=== PATIENT | female | born 1970 | race Caucasian/White ===

== ENCOUNTER → 2017-10-28 15:38 | Outpatient (REF) | payer MEDICAID, SELFPAY ==
[2017-10-28 18:53] LABS: Basophils % 0.5 % (0.1-2.0); Eosinophils # 0.1 K/mm3 (0.0-0.4); Hematocrit 45.5 % (37.0-47.0); Lymphocytes # 1.8 K/mm3 (0.7-4.5); Lymphocytes % 26.2 K/mm3 (10-50); Mean Corpuscular HGB Conc 32.9 g/dL (31.8-35.4); Mean Corpuscular Hemoglobin 28.4 pg (27.0-31.2); Mean Corpuscular Volume 86.6 fl (81-99); Mean Platelet Volume 8.5 fl (7.4-10.4); Monocytes # 0.4 K/mm3 (0.1-1.0); Neutrophils # 4.6 K/mm3 (1.8-7.8); Neutrophils % 66.3 % (37.0-80.0); Platelet Count 291 K/mm3 (142-424); Red Blood Count 5.26 M/mm3 (4.20-5.40); Red Cell Distribution Width 13.5 % (11.5-17.5)
[2017-10-28 20:23] LABS: Alanine Aminotransferase 29 U/L (12-78); Albumin Level 4.4 gm/dL (3.4-5.0); Alkaline Phosphatase 118 U/L (46-116); Anion Gap 13.2 mEq/L (5-15); Aspartate Amino Transferase 17 U/L (15-37); Bilirubin,Total 0.5 mg/dL (0.2-1.0); Blood Urea Nitrogen 21 mg/dL (7-18); Calcium 10.1 mg/dL (8.5-10.1); Carbon Dioxide 28 mmol/L (21.0-32.0); Chloride 103 mmol/L (98-107); Chol/HDL Ratio 6.9 (1-3.5); Cholesterol 296 mg/dL (140-200); Creatinine,Serum 0.88 mg/dL (0.55-1.02); Estimated Glomerular Filt Rate 69 ml/min (>60); GFR (African American) 83 ML/MIN (>60); Globulin 4.3 gm/dl (1.3-3.2); Glucose 110 mg/dL (74-106); HDL Cholesterol 43 mg/dL (29-89); LDL Cholesterol 217 mg/dL (0-130); Potassium 4.2 mmoL/L (3.5-5.1); Sodium 140 mmol/L (136-145); T4 (Thyroxine) 9.4 ug/dl (4.7-13.3); Thyroid Stimulating Hormone 3.88 uIU/ml (0.358-3.740); Total Protein,Serum 8.7 gm/dL (6.4-8.2); Triglycerides 181 mg/dL (30-200); VLDL Cholesterol 36 mg/dL (0-40)
[2017-10-30 10:19] LABS: Vitamin B12 313 pg/mL (232-1245); Vitamin D 25 Hydroxy 9.9 ng/mL (30.0-100.0)
== END ==
LOC: LAB 15:38
PROVIDERS: Visit Provider Nurse Practitioner Family
DX: R53.83 Other fatigue (principal); R09.89 Other specified symptoms and signs involving the circulatory and respiratory systems; E55.9 Vitamin D deficiency, unspecified
CPT/HCPCS: 80053; 80061; 82607; 82652; 84436; 84443; 85025

== ENCOUNTER → 2017-11-05 08:03 | Outpatient (CLI) | payer MEDICAID, SELFPAY ==
--- NOTE | 2017-11-05 08:04 | CI_ITS ---
Cerebrovascular Exam Indications: 785.9 Bruit. IMPRESSIONS 1. Normal study. 2. The bilateral internal carotid arteries reveal minimal intimal thickening with no evidence of stenosis. 3. The bilateral common carotid arteries reveal minimal intimal thickening with no evidence of stenosis.The bilateralexternal carotid arteries reveal no significant stenosis. 4. The bilateral vertebral arteries are patent with normal antegrade flow. 5. The bilateral subclavian arteries reveal no evidence of significant stenosis. Carotid duplex study. Complete study and Doppler flow study including spectral analysis, color and aguilar scale imaging. Height: Height: 170.2cm. Height: 67in. Weight: Weight: 68kg. Weight: 149.7lb. Body mass index: BMI: 23.5kg/m^2. Body surface area: BSA: 1.8m^2. Location: Vascular laboratory. Patient status: Outpatient. Tables: Arterial flow: + +--------+--------+ Location V sys V ed + +--------+--------+ Right CCA - proximal 99.8cm/s 35.4cm/s + +--------+--------+ Right CCA - distal 76.1cm/s 29.3cm/s + +--------+--------+ Right ECA 80.3cm/s 19.6cm/s + +--------+--------+ Right ICA - proximal 73.9cm/s 35.8cm/s + +--------+--------+ Right ICA - mid 87.1cm/s 40.3cm/s + +--------+--------+ Right ICA - distal 129cm/s 54cm/s + +--------+--------+ Right vertebral 48.5cm/s 22.7cm/s + +--------+--------+ Left CCA - proximal 75.4cm/s 23.3cm/s + +--------+--------+ Left CCA - distal 53.7cm/s 24cm/s + +--------+--------+ Left ECA 76.6cm/s 22.6cm/s + +--------+--------+ Left ICA - proximal 51.5cm/s 21cm/s + +--------+--------+ Left ICA - mid 61.6cm/s 27.9cm/s + +--------+--------+ Left ICA - distal 62cm/s 29.2cm/s + +--------+--------+ Left vertebral 44.3cm/s 20.3cm/s + +--------+--------+ Velocity ratios: + + + + + + Right, V sys Right, V ed Left, V sys Left, V ed + + + + + + Max ICA/dist CCA 1.7 1.84 1.15 1.22 + + + + + + (Report amended ) Electronically signed by: Dimitry Pierce [id number]
--- NOTE | 2017-11-05 08:06 | AS_ITS ---
Renal Arterial Duplex IMPRESSIONS 1. Greater than 60% stenosis involving the right renal artery 2. Consider CTA renals for confirmation 3. The left renal artery appears normal. History: Risk factors: Hypertension. Complete renal arterial duplex. Duplex scan and Doppler flow study including spectral analysis, color and aguilar scale imaging. Height: Height: 170.2cm. Height: 67in. Weight: Weight: 68kg. Weight: 149.7lb. Body mass index: BMI: 23.5kg/m^2. Body surface area: BSA: 1.8m^2. Location: Vascular laboratory. Patient status: Outpatient. Tables: Arterial flow: + +--------+---------+ Location V sys V ed + +--------+---------+ Right renal - proximal 258cm/s 98.8cm/s + +--------+---------+ Right renal - mid 170cm/s 54.8cm/s + +--------+---------+ Right renal - distal -119cm/s -25.4cm/s + +--------+---------+ Left renal - proximal 181cm/s 76cm/s + +--------+---------+ Left renal - mid 216cm/s 98.3cm/s + +--------+---------+ Left renal - distal 138cm/s 64.2cm/s + +--------+---------+ Right renal - Origin 282cm/s 83cm/s + +--------+---------+ Left renal - Origin 193cm/s 81cm/s + +--------+---------+ Aorta - mid 86cm/s 18cm/s + +--------+---------+ Artery mapping: + +--------+ Location Diameter + +--------+ Abdominal aorta - mid 1.7mm + +--------+ Renal anatomy: + +------+-----+ Left Right + +------+-----+ Long axis 10.8cm 9.2cm + +------+-----+ Short axis 4.8cm 4.6cm + +------+-----+ Velocity ratios: + +-----+ V sys + +-----+ Right renal/aortic 3.3 + +-----+ Left renal/aortic 2.2 + +-----+ (Report amended ) Electronically signed by: Dimitry Pierce [id number]
--- NOTE | 2017-11-05 09:10 | MM_ITS ---
MM Dig screening mamm BI w/CAD . ORDERING PHYSICIAN : Sussy Navas PATIENT AGE: 47 years GENDER: Female HISTORY no hormones no new complaints. Family history. Mother with breast cancer & maternal grandmother with breast cancer.-Age onset of both Uncertain on this history sheet COMPARISON: Baseline mammogram no previous studies for comparison. TECHNIQUE: Standard CC and MLO images were obtained. R2 CAD reviewed. Screening BILATERAL MAMMOGRAM- FINDINGS: Moderately dense breast tissue seen at Central breast bilaterally with nodularity. Mammography is decreased sensitivity in breast of this character.Recommend bilateral breast ultrasound along with spot CC view and 90 degree view both breast particularly in light of the positive family history. RIGHT BREAST:A small 8 mm area of nodularity lateral breast on cc view and superior retroareolar region on MLO view today. Likely small cyst . Questionable additional nodularity posterior dense breast on MLO view . LEFT BREAST: Moderately Dense breast tissue Nodular X: Nearly 8 mm x 6 mm nodule is seen at the medial left breast. Labeled X likely resides towards the superior ... IMPRESSION:...... Recommend bilateral breast ultrasound , along with spot CC view & 90 degree view both breast. Dense breast tissue with minimal nodularity bilaterally likely related to cyst but would benefit from ultrasound and spot views further evaluate on this baseline mammogram study. BI-RADS Category: 0 Need Additional Imaging Evaluation RECOMMENDED FOLLOW-UP: IMM - IMMEDIATE FOLLOW-UP RECOMMENDED FOLLOW-UP RECOMMENDED Spot views both right and left breast. Ultrasound both breasts. (A letter has been sent to the patient regarding results of the study.) Knee
== END ==
PROVIDERS: Family Provider Physician Assistant; PCP Nurse Practitioner Family; Visit Provider Nurse Practitioner Family
DX: I15.8 Other secondary hypertension (principal); R09.89 Other specified symptoms and signs involving the circulatory and respiratory systems; R53.83 Other fatigue
CPT/HCPCS: 77067; 93880; 93976

== ENCOUNTER → 2017-11-19 10:12 | Outpatient (CLI) | payer MEDICAID, SELFPAY ==
--- NOTE | 2017-11-19 10:15 | CT_ITS ---
CT angio abdomen pelvis CLINICAL INDICATION: Right renal artery stenosis ITS.REASON: greater than 60 tenosis of right renal artery ORDERING PHYSICIAN: Wyatt Paredes MD PATIENT AGE: 47 years COMPARISON: None TECHNIQUE: Axial images obtained with sagittal and coronal reformats. All CT scans at the facility use one or more dose reduction, viz: automated exposure control; ma/kV adjustment per patient size (including targeted exams where dose is matched to indication; i.e. head); or iterative reconstruction technique. PROCEDURE: Oral Contrast: None IV Contrast: 100 mL of Isovue-370. FINDINGS: Angiographic findings: No areas of apparent. There are minimal atheromatous changes of the abdominal aorta. There is a single renal artery to the right kidney with approximately 40% ostial stenosis. No other stenotic lesions are evident. There are 2 arteries to the left kidney. There is approximately 45% stenosis involving the proximal aspect of the superior left renal artery. The artery to the lower pole left kidney a small area Celiac artery is unremarkable. There is stenosis involving the proximal aspect of the superior mesenteric artery of approximately 50%. The inferior mesenteric artery is patent. No aneurysmal dilatation evident. Non angiographic findings: Has been prior cholecystectomy. There is a small hiatal hernia. The liver, spleen, adrenal glands, and pancreas are unremarkable. No renal mass or hydronephrosis. There is mild prominence of the left renal pelvis evident somewhat similar appearance on 05/13/2013 No intestinal obstruction or free air. There is diffuse diverticulosis of the descending and sigmoid colon. No evidence of diverticulitis. IMPRESSION: 1. Mild stenosis of the proximal aspect of the right renal artery of 40%. 2. 45% stenosis of the proximal aspect of the dominant superior pole left renal artery. 3. 50% stenosis of the proximal SMA 4. Diverticulosis of the colon. No evidence of diverticulitis
== END ==
PROVIDERS: Family Provider Physician Assistant; PCP Nurse Practitioner Family; Visit Provider Emergency Medicine
DX: I70.1 Atherosclerosis of renal artery (principal)
CPT/HCPCS: 74174; Q9967

== ENCOUNTER → 2017-11-27 14:24 | Outpatient (CLI) | payer MEDICAID, SELFPAY ==
--- NOTE | 2017-11-27 14:24 | MM_ITS ---
MM Dig mamm BI DX w/CAD, US breast LT complete US breast RT complete INDICATION: Follow-up abnormal mammogram ORDERING PHYSICIAN: Sussy Navas PATIENT AGE: 47 years COMPARISON: 11/05/2017 TECHNIQUE: Bilateral problem-solving views along with bilateral breast ultrasound FINDINGS: Right breast: Persistent nodular opacities are present in the retroareolar region on the right with at least 2 nodules measuring 7 and 5 mm. These are fairly well-circumscribed. Right breast ultrasound: 7 x 6 mm hypoechoic nodule at 9:00. There are some low-level echoes. This may represent complex cyst. There is enhanced transmission of sound. 5 mm hypoechoic nodule at 3:00 and may represent complex cyst with some low level echoes but enhanced through transmission of sound. 4 mm x 3 mm hypoechoic nodule at 1:00 with some low-level echoes and may represent complex cyst. Left breast: 8 mm nodular density at 9:00 region. 7 mm nodular density 12:00 region. Left breast ultrasound: 6 mm isoechoic nodule present at 8:00. This has some low-level echoes some of which may be due to technique. There is enhanced through transmission of sound. This may correspond to the nodule noted at 9:00 on the mammogram. No other sonographic abnormalities detected. I would recommend that the patient return at no additional charge for second look ultrasound to further evaluate the nodule at 12:00. IMPRESSION: Probably benign findings. No convincing evidence of malignancy. The bilateral breast nodules are not completely cystic by sonographic criteria. Probable complex cysts The nodule at 12:00 was not demonstrated by ultrasound. Recommend bilateral breast ultrasound in 3 months. BI-RADS Category: 3 Benign Finding Short Term Follow-up RECOMMENDED FOLLOW-UP: 3M - 3 MONTH FOLLOWUP Recommend bilateral breast ultrasound to confirm stability of the probably benign nodules. Also the nodule at 12:00 in the left breast on the mammogram was not visualized by ultrasound. Suggest reevaluating this area by ultrasound as well in 3 months (A letter has been sent to the patient regarding results of the study.)
== END ==
PROVIDERS: Family Provider Physician Assistant; PCP Nurse Practitioner Family; Visit Provider Nurse Practitioner Family
DX: R92.8 Other abnormal and inconclusive findings on diagnostic imaging of breast (principal)
CPT/HCPCS: 76641; 77066

== ENCOUNTER → 2018-01-07 18:02 | Outpatient (CLI) | payer MEDICAID, SELFPAY | PROVIDERS: Visit Provider Obstetrics & Gynecology | DX: Z80.3 Family history of malignant neoplasm of breast (principal) | CPT/HCPCS: 36415 ==

== ENCOUNTER → 2018-01-26 17:09 | Outpatient (CLI) | payer MEDICARE, MEDICAID, SELFPAY ==
[2018-01-26 17:11] LABS: Microscopic, Urine URINE MICROSCOPIC (MICROSCOPIC)
[2018-01-26 17:57] LABS: Basophils % 0.6 % (0.1-2.0); Eosinophils # 0.1 K/mm3 (0.0-0.4); Eosinophils % 2.1 % (0.1-12.0); Hematocrit 41.1 % (37.0-47.0); Hemoglobin 13.5 g/dL (12.2-16.2); Lymphocytes # 2.2 K/mm3 (0.7-4.5); Lymphocytes % 33.8 K/mm3 (10-50); Mean Corpuscular HGB Conc 32.8 g/dL (31.8-35.4); Mean Corpuscular Volume 85.3 fl (81-99); Mean Platelet Volume 8.1 fl (7.4-10.4); Monocytes # 0.4 K/mm3 (0.1-1.0); Monocytes % 5.4 % (1.7-9.3); Neutrophils # 3.8 K/mm3 (1.8-7.8); Neutrophils % 58.1 % (37.0-80.0); Platelet Count 262 K/mm3 (142-424); Red Blood Count 4.82 M/mm3 (4.20-5.40); Red Cell Distribution Width 13.9 % (11.5-17.5); White Blood Count 6.5 K/mm3 (4.8-10.8)
[2018-01-26 19:08] LABS: Appearance,Urine CLEAR (Clear); Bilirubin,Urine Negative (Negative); Blood, Urine 1+ (Negative); Color,Urine YELLOW (Yellow); Creatinine,Urine Random 91 mg/dL (20-320); Glucose,Urine (UA) Negative (Negative); Ketones,Urine Negative (Negative); Leukocyte Esterase,Urine TRACE (Negative); Nitrate,Urine Negative (Negative); Protein,Urine Negative (Negative); Specific Gravity, Urine 1.015 (1.005-1.030); Urobilinogen,Urine 0.2 EU/dl (0.2)
[2018-01-26 19:25] LABS: Total Protein,Urine Random < 6.0 mg/dL (0.0-11.9)
[2018-01-26 19:30] LABS: Bacteria,Urine 1+ /lpf; RBC,Urine Occasional #/hpf (0-3)
[2018-01-26 21:10] LABS: Albumin Level 3.9 gm/dL (3.4-5.0); Anion Gap 12.8 mEq/L (5-15); Blood Urea Nitrogen 10 mg/dL (7-18); Calcium 9.1 mg/dL (8.5-10.1); Carbon Dioxide 30 mmol/L (21.0-32.0); Chloride 104 mmol/L (98-107); Creatinine,Serum 0.79 mg/dL (0.55-1.02); Estimated Glomerular Filt Rate 78 ml/min (>60); GFR (African American) 94 ML/MIN (>60); Glucose 101 mg/dL (74-106); Phosphorous 3.3 mg/dL (2.4-4.9); Potassium 3.8 mmoL/L (3.5-5.1); Sodium 143 mmol/L (136-145)
[2018-01-28 16:42] LABS: Parathyroid Hormone Intact 87 pg/mL (15-65); Vitamin D 25 Hydroxy 14.7 ng/mL (30.0-100.0)
== END ==
PROVIDERS: Visit Provider Internal Medicine Nephrology
DX: N17.9 Acute kidney failure, unspecified (principal)
CPT/HCPCS: 36415; 80069; 81001; 82570; 82652; 83970; 84155; 85025

== ENCOUNTER → 2018-01-28 16:32 | Outpatient (POV) | payer MEDICAID, SELFPAY | PROVIDERS: Family Provider Physician Assistant; PCP Nurse Practitioner Family; Visit Provider Internal Medicine Nephrology | DX: Z00.00 Encounter for general adult medical examination without abnormal findings (principal) ==

== ENCOUNTER → 2018-03-05 13:24 | Outpatient (CLI) | payer MEDICAID, SELFPAY ==
--- NOTE | 2018-03-05 13:26 | US_ITS ---
US breast LT complete INDICATION: Follow-up abnormal ultrasound ORDERING PHYSICIAN: Sussy Navas PATIENT AGE: 48 years COMPARISON: , 3 month follow-up 11/27/2017, 11/05/2017 TECHNIQUE: Routine breast ultrasound with the axilla FINDINGS: 3 x 2 mm hyperechoic nodule in the subcutaneous region at 6:00 suggesting small lipoma. 5 x 5 mm hypoechoic nodule at 9:00 with enhanced through transmission of sound benign-appearing. Unchanged 6 mm hypoechoic nodule at 11:00 benign-appearing.. This was not previously demonstrated by ultrasound. This likely represents the nodule which was described at 12:00 on the previous ultrasound which appears benign IMPRESSION: Probably benign findings. Hypoechoic nodules. There are some low-level echoes within the nodules which could be due to reverberation. Fibroid anomalies are also considered. These have a benign appearance BI-RADS Category: 3 Probably Benign Finding Short Term Follow-up RECOMMENDED FOLLOW-UP: 6M - 6 MONTH FOLLOW-UP (A letter has been sent to the patient regarding results of the study.)
--- NOTE | 2018-03-05 13:26 | US_ITS ---
US breast RT complete INDICATION: Follow-up probably benign findings ORDERING PHYSICIAN: Sussy Navas PATIENT AGE: 48 years COMPARISON: 11/27/2017, 11/05/2017 TECHNIQUE: Standard ultrasound performed of the right breast and axilla FINDINGS: 3 mm hypoechoic nodule at 12:00 in the nipple unchanged 5 x 3 mm hypoechoic nodule at 1:00 near the nipple unchanged 4 x 3 mm hypoechoic nodule at 3:00 near the nipple unchanged 5 x 2 mm hypoechoic nodule at 9:00 likely due to small cyst. 7 x 5 mm hypoechoic nodule with enhanced through transmission of sound at 9:00 unchanged. This does have some low-level echoes and may be due to a complex cyst or fibroadenoma. 4 x 4 mm cyst in the right retroareolar region. Small nodes are present axilla IMPRESSION: Overall no significant change. Benign appearing hypoechoic nodules. The largest nodule is a 7 x 5 mm and is unchanged. There are some low-level echoes. This may be due to a complex cyst or fibroadenoma. Six-month follow-up suggested. Alternatively, fine-needle aspiration could be performed if clinically desired. BI-RADS Category: 3 Probably Benign Finding Short Term Follow-up RECOMMENDED FOLLOW-UP: 6M - 6 MONTH FOLLOW-UP (A letter has been sent to the patient regarding results of the study.)
== END ==
PROVIDERS: Family Provider Physician Assistant; PCP Nurse Practitioner Family; Visit Provider Nurse Practitioner Family
DX: N60.01 Solitary cyst of right breast (principal); N60.02 Solitary cyst of left breast
CPT/HCPCS: 76641

== ENCOUNTER → 2018-03-30 08:44 | Outpatient (CLI) | payer MEDICAID, SELFPAY ==
--- NOTE | 2018-03-30 08:46 | FL_ITS ---
EXAM: Barium swallow/esophagram. INDICATION: Dysphasia, pain with swallowing liquids and solids ITS.REASON: swallowing ORDERING PHYSICIAN: Wyatt Paredes MD PATIENT AGE: 48 years COMPARISON: None TECHNIQUE: In the upright position the patient was observed to swallow barium in both the AP and lateral view. The cervical esophagus was examined under fluoroscopy with images obtained. The patient was then placed prone in the right anterior oblique position and was observed to swallow barium with Valsalva technique . FLUOROSCOPY TIME: 46 seconds FINDINGS: There was no evidence of aspiration. There was normal peristalsis. No filling defects or mucosal abnormalities. No masses or strictures. There is a small sliding hiatal hernia IMPRESSION: Small sliding hiatal hernia otherwise negative barium swallow
== END ==
PROVIDERS: Family Provider Physician Assistant; PCP Nurse Practitioner Family; Visit Provider Emergency Medicine
DX: R13.10 Dysphagia, unspecified (principal)
CPT/HCPCS: 74220

== ENCOUNTER → 2018-07-19 12:28 | Outpatient (CLI) | payer MEDICAID, SELFPAY ==
--- NOTE | 2018-07-19 12:30 | FL_ITS ---
FL barium swallow modified INDICATION: ITS.REASON: bells palsy dysphagia Aspiration history. On nectar consistency diet currently TECHNIQUE & FINDINGS: Study performed conjunction with speech pathologist Magui davey. . 2 minutes [address] Tobin observing Patient study the lateral projection with video esophagram recording. Various barium consistencies utilized to study swallowing mechanism. Thin liquids via straw. A present on the right side. Also pudding consistency along with mechanical soft, puree food and barium pill followed by thin wash. 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 Experienced buccal e pocketing with mechanical soft and regular consistencies. Noted the patient required placement of straw on the right side due to the weakness at the left side but noting left side facial and labial muscle weakness from the Napier's palsy. . With swallowing there is scant flash penetration of thin liquids into the laryngeal vestibule. Minimal. No eloina aspiration additionally.. Puree and pudding, then Mechanical soft barium on cereal bar: Experienced buccal e pocketing with mechanical soft and regular consistencies. Good function of hypopharynx and minimal but adequate strength swallowing. 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 & Residual left facial weakness Requiring placement of straw at the right mouth Also Experienced buccal pocketing with mechanical soft and regular consistencies Only scant flash penetration noted with thin liquid via straw Otherwise a satisfactory strength and coordination swallowing reflex otherwise seen, and with other consistencies.. See review & recommendations from speech pathologist Magui davey
--- NOTE | 2018-07-19 13:46 | HMH.SLMBS2 ---
Speech & Language Evaluation Speech/Language Mod Barium Swallow Start: 07/19/18 13:38 Freq: once Status: Complete Protocol: Document 07/19/18 13:38 MARY CARMEN (Rec: 07/19/18 13:46 MARY CARMEN [id number]) [facility] [place] Recommendations Diet Dietary Recommendations Regular Thin Liquids Treatment/Strategies Treatment Recommendation Oral Motor Exercises Chewing Exercises Compens. Strategy Educat. Strategy/Precaution Recommend Sitting Upright (90 deg) Turn Head Left Liquids from Straw Mod Barium Swallow Impressions Summary and Impressions Oral Phase Impression Mild Impairment Oral Phase Summary Ms. Lobato experieced buccal pocketing with mechanical soft and regular consistencies . She naturally placed her hand on her left side to clear residue in buccal cavity. Pharyngeal Phase Impression Minimal Impairment Pharyngeal Phase Summary Flash penetration with thin liquids via straw noted during evaluation. 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 Recommendations PHYSICIAN CERTIFICATION: The specified therapy services are required, authorized, and reviewed every 30 days. Pt will be seen # times/week 2 for # weeks 4 Diet Recommendations Normal Liquid Type Recommendations Normal/Thin SL Swallow Guidelines Liquids via straw Dysphagia Swallow Precautions/Strategies Sitting Upright (90 deg) Turn Head Left Liquids from Straw Plan Anticipate reaching STG in # weeks 4 Anticipate reaching LTG in # weeks 4 Pt/Guardian verbally ack understanding Yes of dx/prognosis/goals G -code Required No STG-Ant Loss/Lip Closure Pucker lips (as if to blow kiss) # 10 trials Achieve lip closure with jaw open in # 10 trials Will puff cheeks and keep lips tightly 10 sealed in # trials Grin as wide as possible w/o showing 10 teeth in # trials STG-Bolus Form/Oral Sensation Clean buccal cavity w fingers/tongue 2 during/after meal w/wo cues in # trials STG-Bolus Form/Tone in Cheek Will prod 'oo' & 'ee' w/exaggerated lip 10
== END ==
PROVIDERS: PCP Nurse Practitioner Family; Visit Provider Nurse Practitioner Family
DX: G51.0 Bell's palsy (principal)
CPT/HCPCS: 70371; 92611

== ENCOUNTER 2018-07-21 10:53 | Outpatient (RCR) | payer MEDICAID, SELFPAY ==
--- NOTE | 2018-07-21 13:16 | HMH.SLDYSPHA ---
Speech & Language Evaluation Speech/Language Dysphagia Evaluation Start: 07/21/18 11:34 Freq: ONCE Status: Active Protocol: Document 07/21/18 11:34 MARY CARMEN (Rec: 07/21/18 13:16 MARY CARMEN [id number]) Dysphagia Assess/Goals/Plan Assessment Date of Evaluation: 07/21/18 Evaluation Type Re-Evaluation/Revise POC Assessment/Problems Napier's Palsy Does Patient Qualify for Service Yes Qualify/Failure Comment Decreased oral motor strength and range of motion Recommendations PHYSICIAN CERTIFICATION: The specified therapy services are required, authorized, and reviewed every 30 days. Pt will be seen # times/week 1 for # weeks 4 Diet Recommendations Normal Liquid Type Recommendations Normal/Thin SL Swallow Guidelines Standard Aspiration Prec. Dysphagia Swallow Precautions/Strategies Sitting Upright (90 deg) Liquids from Straw Small Bites and Sips Alternate Liquids/Solids Place Food on Right side of Mouth Additional Consults Recommended Other Comment Referral to Neurologist to establish cause for neuromuscular weakness and function. Referral to [place] to determine cause of ear pain Plan Anticipate reaching STG in # weeks 4 Anticipate reaching LTG in # weeks 8 Pt/Guardian verbally ack understanding Yes of dx/prognosis/goals G -code Required No STG-Ant Loss/Lip Closure [place]. loss of food/liq out of mouth w/ 10 lip(s) support in # trials Achieve lip closure around object ( 5 popsicle/ice cube) # secs on # trials 10 Achieve lip close against resistance w/ 10 fingers of clinician # trials Pucker lips (as if to blow kiss) # 10 trials Achieve lip closure with jaw open in # 10 trials Will puff cheeks and keep lips tightly 10 sealed in # trials Hold tongue depressor between closed 10 lips for 10 cnt #trials Grin as wide as possible w/o showing 10 teeth in # trials Water Plant Operator Goals Diet Regular with Liquids Thin Liquids Education Instructions provided Patient was given HEP to improve oral motor strength and range of motion Speech & Language HPI History Present Illness Description of Patient Problem Napier's Palsy resulting in weakness of facial muscles and difficulty eating. Pt/Caregiver Co
== END 2018-07-21 10:55 | disposition home or self-care (01) ==
LOC: ST 10:53
PROVIDERS: Visit Provider Nurse Practitioner Family
DX: G51.0 Bell's palsy (principal)
CPT/HCPCS: 92610

== ENCOUNTER → 2018-07-28 14:59 | Outpatient (CLI) | payer MEDICAID, SELFPAY ==
--- NOTE | 2018-07-28 15:08 | MR_ITS ---
MR head/brain wo con HISTORY: Facial weakness first with left-sided weakness now with right-sided weakness, slurred speech, right upper extremity and right leg weakness ITS.REASON: bells palsy ORDERING PHYSICIAN: Sussy Navas PATIENT AGE: 48 years Comparison: None TECHNIQUE: Standard multiplanar multiecho sequences are performed without contrast. FINDINGS: No midline shift, mass effect, intracranial hemorrhage, or hydrocephalus is evident. The cerebellopontine angles cerebellum, and brainstem are unremarkable. No acute infarction. There a few T2 white matter hyperintensities noted in the left parietal region, left frontal parietal area, and in the periventricular in the right frontal area. These are nonspecific. The pituitary and optic chiasm and corpus callosum have an unremarkable appearance. There is mild cerebellar tonsillar ectopia of approximately 4 mm. No hydrocephalus apparent. The fourth ventricle has an unremarkable appearance. The upper cervical cord appears unremarkable. No mastoid effusion or sinus air-fluid level. IMPRESSION: 1. No acute intracranial findings. 2. There are scattered T2 white matter hyperintensities which are nonspecific and may be due to small ischemic gliotic foci. Differential diagnosis would include sequela from migraine headache or demyelinating process. These latter 2 entities are considered less likely but not totally excluded. 3. Mild cerebellar tonsillar ectopia
== END ==
PROVIDERS: PCP Nurse Practitioner Family; Visit Provider Nurse Practitioner Family
DX: R29.810 Facial weakness (principal); G51.0 Bell's palsy
CPT/HCPCS: 70551

== ENCOUNTER → 2018-08-06 12:28 | Outpatient (CLI) | payer MEDICAID, SELFPAY ==
[2018-08-06 12:55] LABS: Anion Gap 8.2 mEq/L (5-15); Blood Urea Nitrogen 15 mg/dL (7-18); Calcium 9.4 mg/dL (8.5-10.1); Carbon Dioxide 35 mmol/L (21.0-32.0); Chloride 99 mmol/L (98-107); Creatinine,Serum 1.07 mg/dL (0.55-1.02); Estimated Glomerular Filt Rate 55 ml/min (>60); GFR (African American) 66 ML/MIN (>60); Glucose 118 mg/dL (74-106); Potassium 3.2 mmoL/L (3.5-5.1); Sodium 139 mmol/L (136-145)
== END ==
PROVIDERS: Visit Provider Emergency Medicine
DX: R53.1 Weakness (principal)
CPT/HCPCS: 36415; 80048

== ENCOUNTER → 2018-08-10 10:55 | Outpatient (CLI) | payer MEDICAID, SELFPAY ==
--- NOTE | 2018-08-10 10:56 | NM_ITS ---
History and Indications: Hypertension, hyperlipidemia, family history, fatigue Procedure: Patient exercised on Mendoza protocol 6 minutes and 20 seconds, resting heart rate was 66 bpm resting blood pressure 166/104, with exercise maximum heart rate achieved was 1 57 bpm which is greater than 85% of the maximum predicted heart rate and a blood pressure was 200/100. Test was started due to shortness of breath and fatigue. Patient denied any complained of chest pain. Patient has adequate exercise capacity achieved 7mets of workload on treadmill, the blood pressure response to exercise was hypertensive. Electrocardiogram: Resting electrocardiogram showed sinus rhythm with exercise there is less than 1.5 ST segment depression noted from the baseline the EKG portion of the exercise Myoview is negative for ischemia. Frequent premature ventricular complexes were present. Cardiac stress and resting SPECT images: Cardiac stress and resting SPECT images were obtained using technetium 99 Myoview 32.8 mCi stress and 11.0 mCi at rest. Gated SPECT further analysis of segmental wall motion and admission of the ejection fraction also done. Cardiac stress and resting SPECT images show uniform myocardial activity without segmental perfusion abnormality, computer derived ejection fraction is over 65% with no regional wall motion abnormality, right ventricle are normal size and contractility. Conclusion: 1. The EKG portion of the exercise Myoview is negative for ischemia, patient has adequate exercise capacity achieved 7mets of workload on treadmill, the blood pressure response to exercise was hypertensive, there was no exercise induced chest discomfort. 2. No scintigraphic evidence of reversible ischemia seen at this level of exercise, computer derived ejection 65 percent with no regional wall motion abnormality, right ventricle is normal size and contractility. 3. Normal exercise Myoview study except for hypertensive blood pressure response
--- NOTE | 2018-08-10 12:59 | CA_ITS ---
PROCEDURE: 2-D M-mode and color Doppler study INDICATIONS FOR THE TEST: Chest pain+ COPD Heart Murmur Tobacco Smoking Palpitations Fatigue Syncope Edema Hypertension+Diabetes Mellitus Rheumatic Fever SOB+FISHER Obesity Hyperlipidemia+ Family History HD Additional History PATIENT INFORMATION HEIGHT: 66 WEIGHT: 151 GENDER: Female B/P: 165/95 2-D/M-MODE INTERPRETATION: 2-D MEASUREMENTS OBSERVED VALUES IN CMS Right Ventricular Dimension (RVDd) 2.6 Interventricular Septum (Thickness)(IVsd) 0.9 Left Ventricular Internal Dimensions(LVIDd) 4.6 Left Ventricular Posterior Wall (Thickness)(LVPWd) 0.9 Aortic Root 3.3 Aortic Cusp Separation 2.2 Left Atrial Dimensions (LAD) 3.6 2D 1. Left atrium is mildly enlarged, left ventricle is normal size, mild concentric left ventricular hypertrophy, visually estimated ejection fraction 55% with no regional wall motion abnormality. 2. The right atrium and right ventricle are normal size and contractility. 3. The aortic valve is minimally thickened and fibrosed. 4. The mitral and tricuspid valvular grossly normal. 5. The pulmonic valve is poorly visualized. 6. No significant pericardial effusion noted. DOPPLER INTERROGATION: Doppler interrogation of the aortic, mitral and tricuspid valvular presence of mild mitral and tricuspid regurgitation, tricuspid regurgitation jet velocity is inadequate for calculation of the right ventricular systolic pressure, grade 1 diastolic dysfunction seen without tissue Doppler evidence of raised left atrial pressure. CONCLUSION: 1. Mildly enlarged left atrium, normal left ventricular size, mild concentric left ventricular hypertrophy, visually estimated ejection fraction 55% with no regional wall motion abnormality, grade 1 diastolic dysfunction seen without tissue Doppler evidence of raised left atrial pressure. 2. Mild mitral and tricuspid regurgitation 3. No significant pericardial effusion noted.
--- NOTE | 2018-08-10 14:42 | HMH.ITSHM ---
Current Home Medications as stated by this patient Lula Lobato or cash applications representative. []asa simvastatin
== END ==
PROVIDERS: PCP Nurse Practitioner Family; Visit Provider Internal Medicine
DX: R07.9 Chest pain, unspecified (principal); I49.3 Ventricular premature depolarization; I10 Essential (primary) hypertension; I70.1 Atherosclerosis of renal artery
CPT/HCPCS: 78452; 93017; 93306; A9502

== ENCOUNTER → 2018-08-19 17:25 | Observation (INO) ==
[2018-08-18 14:59] LABS: Basophils % 0.3 % (0.1-2.0); Eosinophils # 0.1 K/mm3 (0.0-0.4); Eosinophils % 0.8 % (0.1-12.0); Hemoglobin 15.2 g/dL (12.2-16.2); Lymphocytes # 1.8 K/mm3 (0.7-4.5); Lymphocytes % 18.8 % (10-50); Mean Corpuscular HGB Conc 33.8 g/dL (31.8-35.4); Mean Corpuscular Hemoglobin 28.6 pg (27.0-31.2); Mean Corpuscular Volume 84.8 fl (81-99); Mean Platelet Volume 8.6 fl (7.4-10.4); Monocytes # 0.5 K/mm3 (0.1-1.0); Monocytes % 5.2 % (1.7-9.3); Neutrophils # 7.1 K/mm3 (1.8-7.8); Neutrophils % 74.9 % (37.0-80.0); Platelet Count 332 K/mm3 (142-424); Red Cell Distribution Width 13.6 % (11.5-17.5); White Blood Count 9.4 K/mm3 (4.8-10.8)
--- NOTE | 2018-08-18 15:04 | History & Physical Report ---
*Admission Date: 08/18/18 *Chief complaint: angina *History of present illness: this wf was seen by card clinic and noted to have chest pain which was consistent with angina - pt was admitted for [facility] - [facility] History I have reviewed the patient's past medical history: Yes Medical History: Reports:: Anxiety, Depression, Hyperlipidemia, Hypertension Denies:: Cancer, Diabetes Mellitus Type 1, Diabetes Mellitus Type 2, Internal Pacemaker, MRSA, Seizures *Have you ever received a pneumonia vaccine?: No *Have you received a flu vaccine this season?: No Other Medical History: Reports: Other Other Surgeries: Yes: Angiogram (renal), Cholecystectomy, Other. No: Pacemaker Amputation: No Fractures: No - *Social History Smoking Status: Never smoker Alcohol Intake: never Substance Use Type: denies use *Occupational Status:: unemployed Housing: house Household Members: family - Psychiatric History Expresses thoughts of harming self/others: None Pschychiatric History:: Reports:: Anxiety, Depression Family Hx:: No significant family history Review of Systems - Review of Systems Review of systems:: pertinent systems reviewed and negative unless documented below - Constitutional Denies fever(s) - Eyes Denies change in vision - ENT Denies sore throat - *Cardiovascular Denies chest pain at rest - *Respiratory Denies cough - *Gastrointestinal Denies abdominal pain - *Genitourinary Denies blood in urine - *Musculoskeletal Reports joint pain, Reports joint swelling, Reports limited joint movement - Integumentary/Breasts Denies rash - *Neurologic Denies seizure-like activity - Psychiatric Denies anxiety Meds Home Medications Medication Instructions Recorded Confirmed Type amlodipine 5 mg tablet 5 mg PO DAILY tab 08/09/18 08/18/18 History aspirin 81 mg tablet,delayed 81 mg PO DAILY #30 tab 08/09/18 08/18/18 Rx release Atorvastatin Calcium [Atorvastatin 40 mg PO DAILY 08/11/18 08/18/18 History 40mg Tab] Lisinopril/Hydrochlorothiazide 1 tab PO DAILY 08/11/18 08/18/18 History [Lisinopril-Hctz 10-12.5 mg Tab] clopidogrel 75 mg tablet 75 mg PO DAILY #90 tab 08/17/18 08/18/18 Rx bisoprolol fumarate 10 mg tablet 10 mg PO DAILY #30 tab 08/18/18 08/18/18 Rx Allergies Allergy/AdvReac Type Severity Reaction Status Date / Time ampicillin [AMPICILLIN] Allergy Unknown Verified 08/18/18 15:29 codeine [CODEINE] Allergy Unknown Verified 08/18/18 15:29 Penicillins [PENICILLINS] Allergy Unknown Verified 08/18/18 15:29 Exam Vital signs and Labs for Last 24 Hours: Temp Pulse Resp BP Pulse Ox 97.9 F 92 H 22 120/92 H 100 08/18/18 13:10 08/18/18 13:10 08/18/18 13:10 08/18/18 13:10 08/18/18 13:10 I & O for Last 24 hours: Intake & Output 08/16/18 08/17/18 08/18/18 08/19/18 11:59 11:59 11:59 11:59 Intake Total 0 / 0 Balance 0 / 0 Weight 143 lb 2 oz - Constitutional no acute distress - *Routine HEENT Exam Head: Present: normocephalic Eye: Present: EOMI, PERRL ENT: Present: mucous membranes dry - *Routine Neck Exam Present: supple - *Routine Respiratory Exam Present: CTA bilaterally - *Routine Cardiovascular Exam Present: RRR, murmur - *Routine Abdominal Exam Present: soft - *Routine Extremities Exam Present: full ROM - *Routine Skin Exam Present: intact - *Routine Neurological Exam Present: alert, oriented X3, CN II-XII intact - Routine Psychiatric Exam Present: normal affect Assessment and Plan (1) Unstable angina Current visit: No Status: Acute Category: Medical Code(s): I20.0 - Unst able angina (2) GENARO (renal artery stenosis) Current visit: No Status: Chronic Category: Medical Code(s): I70.1 - Atherosclerosis of renal artery (3) Hypokalemia Current visit: Yes Status: Acute Category: Medical Code(s): E87.6 - Hypokalemia (4) Napier's palsy Current visit: No Status: Acute Category: Medical Code(s): G51.0 - Napier's palsy
[2018-08-18 15:15] LABS: Alanine Aminotransferase 29 U/L (12-78); Albumin Level 4.1 gm/dL (3.4-5.0); Alkaline Phosphatase 126 U/L (46-116); Aspartate Amino Transferase 17 U/L (15-37); Bilirubin,Direct 0.2 mg/dL (0.0-0.2); Bilirubin,Indirect 0.6 mg/dL (0.0-0.9); Bilirubin,Total 0.8 mg/dL (0.2-1.0); Blood Urea Nitrogen 15 mg/dL (7-18); Calcium 9.9 mg/dL (8.5-10.1); Carbon Dioxide 34 mmol/L (21.0-32.0); Chloride 97 mmol/L (98-107); Glucose 112 mg/dL (74-106); Sodium 138 mmol/L (136-145); Total Protein,Serum 8.4 gm/dL (6.4-8.2)
[2018-08-19 06:49] LABS: Basophils % 0.4 % (0.1-2.0); Eosinophils # 0.1 K/mm3 (0.0-0.4); Eosinophils % 1.6 % (0.1-12.0); Hematocrit 39.1 % (37.0-47.0); Lymphocytes # 1.9 K/mm3 (0.7-4.5); Mean Corpuscular HGB Conc 34.4 g/dL (31.8-35.4); Mean Corpuscular Hemoglobin 29.1 pg (27.0-31.2); Mean Corpuscular Volume 84.6 fl (81-99); Mean Platelet Volume 8.8 fl (7.4-10.4); Monocytes # 0.6 K/mm3 (0.1-1.0); Monocytes % 8.6 % (1.7-9.3); Neutrophils # 4.7 K/mm3 (1.8-7.8); Neutrophils % 63.4 % (37.0-80.0); Platelet Count 252 K/mm3 (142-424); Red Blood Count 4.62 M/mm3 (4.20-5.40); Red Cell Distribution Width 13.8 % (11.5-17.5); White Blood Count 7.5 K/mm3 (4.8-10.8)
[2018-08-19 06:50] LABS: Hemoglobin 13.5 g/dL (12.2-16.2)
[2018-08-19 07:10] LABS: Anion Gap 11.3 mEq/L (5-15); Chol/HDL Ratio 3.6 (1-3.5); Potassium 3.3 mmoL/L (3.5-5.1)
--- NOTE | 2018-08-19 07:41 | Progress Note ---
Subjective Date: 08/19/18 Time: 07:38 Principal diagnosis: Chest pain Interval history: 48-year-old white female admitted from the office for recurrent chest pain associated with nausea, vomiting and diarrhea. Patient states symptoms improved some overnight but are still present. CTA of the chest showed no evidence of pulmonary embolus or aortic dissection. Labs showed no evidence of myocardial infarction with troponins returning normal Exam Vital signs and Labs for Last 24 Hours: Temp Pulse Resp BP Pulse Ox 98.7 F 47 L 17 113/65 96 08/19/18 04:00 08/19/18 04:00 08/19/18 04:00 08/19/18 04:00 08/19/18 04:00 Laboratory Results - last 24 hr 08/18/18 14:50: WBC 9.4, RBC 5.30, Hgb 15.2, Hct 45.0, MCV 84.8, MCH 28.6, MCHC 33.8, RDW 13.6, Plt Count 332, MPV 8.6, Neut % (Auto) 74.9, Lymph % (Auto) 18.8, Lipscomb % (Auto) 5.2, Eos % (Auto) 0.8, Baso % (Auto) 0.3, Neut # (Auto) 7.1, Lymph # (Auto) 1.8, Lipscomb # (Auto) 0.5, Eos # (Auto) 0.1, Baso # (Auto) 0.0 08/18/18 14:50: Sodium 138, Potassium 3.0 L, Chloride 97 L, Carbon Dioxide 34 H, Anion Gap 10.0, BUN 15, Creatinine 1.05 H, Estimated Creat Clear 66, Estimated GFR 56 L, Est GFR ( Amer) 67, Glucose 112 H, Calcium 9.9, Total Bilirubin 0.8, Direct Bilirubin 0.2, Indirect Bilirubin 0.6, AST 17, ALT 29, Alkaline Phosphatase 126 H, Troponin I < 0.02, Total Protein 8.4 H, Albumin 4.1 08/18/18 20:45: Troponin I < 0.02 08/19/18 03:10: Troponin I < 0.02 08/19/18 06:12: Magnesium 1.8 08/19/18 06:12: WBC 7.5, RBC 4.62, Hgb 13.5 D, Hct 39.1, MCV 84.6, MCH 29.1, MCHC 34.4, RDW 13.8, Plt Count 252, MPV 8.8, Neut % (Auto) 63.4, Lymph % (Auto) 26.0, Lipscomb % (Auto) 8.6, Eos % (Auto) 1.6, Baso % (Auto) 0.4, Neut # (Auto) 4.7, Lymph # (Auto) 1.9, Lipscomb # (Auto) 0.6, Eos # (Auto) 0.1, Baso # (Auto) 0.0 08/19/18 06:12: Sodium 140, Potassium 3.3 L, Chloride 102, Carbon Dioxide 30, Anion Gap 11.3, BUN 16, Creatinine 0.93, Estimated Creat Clear 75, Estimated GFR 64, Est GFR ( Amer) 78, Glucose 103, Triglycerides 134, Cholesterol 116 L , LDL Cholesterol 57, VLDL Cholesterol 27, HDL Cholesterol 32, Cholesterol/HDL Ratio 3.6 H I & O for Last 24 hours: Intake & Output 08/16/18 08/17/18 08/18/18 08/19/18 11:59 11:59 11:59 11:59 Intake Total 1091 / 1091 Balance 1091 / 1091 Weight 143 lb 2 oz - *Routine HEENT Exam Head: Present: normocephalic Eye: Present: EOMI, PERRL ENT: Present: mucous membranes moist Comments: Facial paralysis of the right side noted Napier's palsy. - *Routine Respiratory Exam Present: CTA bilaterally. Absent: accessory muscle use, rales, rhonchi, wheezes - *Routine Cardiovascular Exam Present: RRR. Absent: murmur, gallop, rubs - *Routine Neurological Exam Present: alert, oriented X3, motor deficit, moving all extremities, facial asymmetry Progress Note: A&P (1) Unstable angina Status: Acute Current Visit: No (2) GENARO (renal artery stenosis) Status: Chronic Current Visit: No (3) Hypokalemia Status: Acute Current Visit: Yes (4) Napier's palsy Status: Acute Current Visit: No Assessment and Plan for All Diagnoses:: Plan to proceed with cardiac catheterization today. Patient continues on aspirin and Plavix in addition to atorvastatin, amlodipine, bisoprolol and lisinopril with HCTZ. Potassium supplementation continues with improvement in potassium from 3 up to 3.3 this a.m. Diarrhea panel has been ordered.
[2018-08-19 07:54] LABS: Calcium 8.7 mg/dL (8.5-10.1)
--- NOTE | 2018-08-19 16:51 | Discharge Summary ---
General - General Admission date:: 08/18/18 Discharge date: 08/19/18 HPI HPI: this wf was seen by card clinic and noted to have chest pain which was consistent with angina - pt was admitted for eval - Hospital Course Hospital Course: heart cath report ANGIOGRAPHIC RESULTS: 1. The left main artery normal 2. The left anterior descending artery normal 3. The circumflex artery normal 4. The right coronary artery normal 5. The SOUZA ventriculogram reveals normal 65% 6. The left ventricular end-diastolic pressure elevated at 20 mmHg IMPRESSION: 1. Normal coronary arteries 2. Normal ejection fraction 3. Elevated LVEDP consistent with diastolic dysfunction PLAN: 1. Medical management Objective Vital signs: Temp Pulse Resp BP Pulse Ox 97.7 F 48 L 16 105/62 L 95 08/19/18 07:43 08/19/18 12:50 08/19/18 12:50 08/19/18 12:50 08/19/18 12:50 no acute distress - *Routine HEENT Exam Head: Present: normocephalic Eye: Present: PERRL ENT: Present: mucous membranes moist - *Routine Neck Exam Present: full ROM - *Routine Respiratory Exam Present: CTA bilaterally - *Routine Cardiovascular Exam Present: RRR - *Routine Abdominal Exam Present: soft, normoactive bowel sounds - Routine Back/Spine/Pelvis Exam Back/Spine: Present: full ROM - *Routine Skin Exam Present: intact - *Routine Neurological Exam Present: alert, oriented X3, facial asymmetry - Routine Psychiatric Exam Present: normal affect Results Labs on day of discharge: Labs from last 24 hours 08/19/18 08/19/18 08/19/18 06:12 06:12 06:12 WBC 7.5 RBC 4.62 Hgb 13.5 D Hct 39.1 MCV 84.6 MCH 29.1 MCHC 34.4 RDW 13.8 Plt Count 252 MPV 8.8 Neut % (Auto) 63.4 Lymph % (Auto) 26.0 Pepin % (Auto) 8.6 Eos % (Auto) 1.6 Baso % (Auto) 0.4 Neut # (Auto) 4.7 Lymph # (Auto) 1.9 Pepin # (Auto) 0.6 Eos # (Auto) 0.1 Baso # (Auto) 0.0 Sodium 140 Potassium 3.3 L Chloride 102 Carbon Dioxide 30 Anion Gap 11.3 BUN 16 Creatinine 0.93 Estimated Creat Clear 75 Estimated GFR 64 Est GFR ( Amer) 78 Glucose 103 Calcium 8.7 D Magnesium 1.8 Troponin I Triglycerides 134 Cholesterol 116 L LDL Cholesterol 57 VLDL Cholesterol 27 HDL Cholesterol 32 Cholesterol/HDL Ratio 3.6 H Stl Aeromonas (PCR) Stl C. cayetanensis PCR Stool Rotavirus (PCR) Stl Adenov F 40/ PCR Stool Astrovirus (PCR) Stool Campylobacter PCR Stl C.difficile Tox PCR Stool Cryptosporidium PCR Stl E.coli Shiga Tox PCR Stool E coli O157 PCR Stl Enterotoxigenic E PCR Stool EPEC (PCR) Stool EAEC (PCR) Stl E. histolytica PCR Stool Giardia Lamblia PCR Stool Salmonella PCR Stool Sapovirus (PCR) Stl P. shigelloides PCR Stl Shigella/EIEC PCR St Y.enterocolitica PCR Stool Vibrio (PCR) Stl Vibrio cholerae PCR Stl Norovirus GI/GII PCR 08/19/18 08/18/18 08/18/18 03:10 20:45 09:45 WBC RBC Hgb Hct MCV MCH MCHC RDW Plt Count MPV Neut % (Auto) Lymph % (Auto) Pepin % (Auto) Eos % (Auto) Baso % (Auto) Neut # (Auto) Lymph # (Auto) Pepin # (Auto) Eos # (Auto) Baso # (Auto) Sodium Potassium Chloride Carbon Dioxide Anion Gap BUN Creatinine Estimated Creat Clear Estimated GFR Est GFR ( Amer) Glucose Calcium Magnesium Troponin I < 0.02 < 0.02 Triglycerides Cholesterol LDL Cholesterol VLDL Cholesterol HDL Cholesterol Cholesterol/HDL Ratio Stl Aeromonas (PCR) Not detected Stl C. cayetanensis PCR Not detected Stool Rotavirus (PCR) Not detected Stl Adenov F 40/41 PCR Not detected Stool Astrovirus (PCR) Not detected Stool Campylobacter PCR Not detected Stl C.difficile Tox PCR Not detected Stool Cryptosporidium PCR Not detected Stl E.coli Shiga Tox PCR Not detected Stool E coli O157 PCR Not detected Stl Enterotoxigenic E PCR Not detected Stool EPEC (PCR) Not detected Stool EAEC (PCR) Not detected Stl E. histolytica PCR Not detected Stool Giardia Lamblia PCR Not detected Stool Salmonella PCR Not detected Stool Sapovirus (PCR) Not detected Stl P. shigelloides PCR Not detected Stl Shigella/EIEC PCR Not detected St Y.enterocolitica PCR Not detected Stool Vibrio (PCR) Not detected Stl Vibrio cholerae PCR Not detected Stl Norovirus GI/GII PCR Not detected - Additional Comments marianne rounded earlier all orders per marianne DS: Diagnosis - Discharge Diagnosis (1) Unstable angina Status: Acute (2) GENARO (renal artery stenosis) Status: Chronic (3) Hypokalemia Status: Acute (4) Napier's palsy Status: Acute Discharge Plan - Patient Discharge Instructions ACTIVITY: Continue current activity DIET: continue same diet Patient Instructions: Heart-Healthy Diet, DI for Angina, DI for Cardiac Catheterization, DI for Surgical Site Infection - Follow up Plan Follow up with: Jose Rafael Lucas MD [Staff Physician] - 1 week Wyatt Paredes MD [Primary Care Provider] - 08/24/18 Disposition: Home, Self-Snf Medications: Home Medications Medication Instructions Recorded Confirmed Type amlodipine 5 mg tablet 5 mg PO DAILY tab 08/09/18 08/18/18 History aspirin 81 mg tablet,delayed 81 mg PO DAILY #30 tab 08/09/18 08/18/18 Rx release Atorvastatin Calcium [Atorvastatin 40 mg PO DAILY 08/11/18 08/18/18 History 40mg Tab] Lisinopril/Hydrochlorothiazide 1 tab PO DAILY 08/11/18 08/18/18 History [Lisinopril-Hctz 10-12.5 mg Tab] clopidogrel 75 mg tablet 75 mg PO DAILY #90 tab 08/17/18 08/18/18 Rx bisoprolol fumarate 10 mg tablet 10 mg PO DAILY #30 tab 08/18/18 08/18/18 Rx Prescriptions/Medication Reconciliation: Continue aspirin 81 mg tablet,delayed release 81 mg PO DAILY #30 tab bisoprolol fumarate 10 mg tablet 10 mg PO DAILY #30 tab amlodipine 5 mg tablet 5 mg PO DAILY tab clopidogrel 75 mg tablet 75 mg PO DAILY #90 tab Lisinopril/Hydrochlorothiazide [Lisinopril-Hctz 10-12.5 mg Tab] 1 tab PO DAILY Atorvastatin Calcium [Atorvastatin 40mg Tab] 40 mg PO DAILY
== END | disposition home or self-care (01) ==
LOC: 2ND
PROVIDERS: ADMIT Emergency Medicine; ATTEND Emergency Medicine
CPT/HCPCS: 36415; 71275; 80048; 80061; 80076; 83735; 84484; 85025; 87507; 93458; 99152; C1725; C1769; G0378; J1644; J2405; Q9966

== ENCOUNTER → 2018-09-02 13:08 | Outpatient (CLI) | payer MEDICAID, SELFPAY ==
--- NOTE | 2018-09-02 13:09 | US_ITS ---
US breast RT complete, US breast LT complete Ordering Physician: Wyatt Paredes MD Patient Age: 48 years: Female HISTORY: ITS.REASON: 6 mth f/unodular breast. With hypoechoic densities both breasts on prior ultrasounds TECHNIQUE: Ultrasound survey of the entire right & left breast including axillary survey bilaterally COMPARISON :Previous bilateral breast ultrasound exams from February 2018 There is also previous ultrasound from November 2014 --- RIGHT BREAST ULTRASOUND including axillary survey...... Near 4 mm small hypoechoic nodule at 12:00 in the nipple. No prominent change perhaps incremental enlargement of this probable debris-filled cyst. Can be followed 5 x 3 mm hypoechoic nodule at 12:00 near the nipple unchanged (match area previously labeled at 1:00) 4 x 3 mm hypoechoic nodule at 3:00 near the nipple unchanged 3.7 x 3.1 cm small round hypoechoic area at 3:00 deep breast deep to the nipple. Unchanged 5 x 2 mm hypoechoic nodule at 9:00 likely due to small cyst. 7 x 5 mm hypoechoic nodule with enhanced through transmission of sound at 9:00-unchanged .. This does have some low-level echoes and may be due to a complex cystor fibroadenoma. Small new collection of small apocrine cyst at 9:00 measures 5.8 mm length x 2.5 mm AP 5 times x 4 mm cyst in the right retroareolar region. 1 mm larger but appears to be a cyst A few small scattered benign axillary lymph nodes. Not of concern ---------IMPRESSION :...... Right breast ultrasound -Overall no significant change since Feb, 2018.. .. Numerous Benign appearing hypoechoic nodules and debris-filled cysts again image.. The largestnodule is a 7 x 5 mm at 9 o'clock position is not changed significantly since Feb, 2018. -This may reflect a small fibroadenoma or complex cyst. With benign ultrasound characteristics Six-month follow-up ultrasound and mammogram to resume annual scheduled suggested. Alternatively, fine-needle aspiration could be performed if clinically desired. ...... LEFT BREAST ULTRASOUND... Including axillary survey...... today's study are compared to the February2018 ultrasound 3 x 2 mm hyperechoic nodule near subcutaneous region at 6:00 suggesting small stable lipoma .. Just less than 6 mm hypoechoic nodule at 9:00 with back wall enhancement & through transmission of sound supports benign debris-filled cyst.. Similar size. If anything it could merely incremental smaller . 5.5 mm mm hypoechoic area 11:00 benign-appearing.. Appears stable as well . -----IMPRESSION: Left breast ultrasound: Stable Hypoechoic nodules and/or debris-filled cysts again seen.. Hypoechoic areas imagesd today appears stable but do demonstrate some internal echoes, I favor debris-filled cyst but these could reflect these could reflect small fibroadenomas. However these can be followed given the benign ultrasound configuration and interval stability.. However Close follow-up warranted in these heterogeneous difficult to evaluate nodular breasts Recommended bilateral breast ultrasound, along annual bilateral mammogram screening 6 months. (Alternatively, fine-needle aspiration could be performed if clinically desired.) BI-RADS Category: 3 Probably Benign Finding Short Term Follow-up RECOMMENDED bilateral FOLLOW-UP: 6M - 6 MONTH FOLLOW-UP *Bilateral ultrasound and bilateral mammogram in 6 months (A letter has been sent to the patient regarding results of the study.)
== END ==
PROVIDERS: PCP Nurse Practitioner Family; Visit Provider Emergency Medicine
DX: R92.8 Other abnormal and inconclusive findings on diagnostic imaging of breast (principal)
CPT/HCPCS: 76641

== ENCOUNTER → 2018-09-29 09:28 | Outpatient (CLI) | payer MEDICAID, SELFPAY ==
--- NOTE | 2018-09-29 09:59 | US_ITS ---
US FNA Breast RIGHT BREAST US FNA Breast LEFT BREAST, Ordering Physician: ESPERANZA Tarango Patient Age: 48 years: Female HISTORY: ITS.REASON: Bilateral BREAST NODULES bilateral breast cyst aspirations... 9:00 o'clock bilateral position bilaterally as seen on previous ultrasound and mammogram from 09/02/2018 RIGHT BREAST ULTRASOUND Today's initial ultrasound again demonstrates ovoid hypoechoic area with internal echoes at 9 o'clock position reflecting either debris-filled cyst versus subtle solid nodule. It measures 7 mm size.... This was observed on previous 09/02/2018 right breast ultrasound. These images determined the best approach for access to perform aspiration or biopsy of this nodule. Scanning by Dr. Tobin. ULTRASOUND-GUIDED FNA ASPIRATION-RIGHT BREAST Following sterile preparation as well as local skin, aspiration was performed by Dr. Tobin Under ultrasound guidance the 18-gauge hypodermic aspiration needle, was advanced to the area. Needle was positioned within the area and it was aspirated. Its size reduced under ultrasound and as documented.. Compatible with a debris-filled cyst. Patient tolerated procedure well material from the cyst was submitted for cytology: CYTOLOGY REPORT. Negative for Malignancy. Scant cellularity. Occasional from cells and rare ductal cells. LEFT BREAST ULTRASOUND Today's initial ultrasound again demonstrates ovoid hypoechoic area with internal echoes at 9 o'clock position reflecting either debris-filled cyst versus subtle solid nodule. It measures 6 mm size.. This was observed on previous 09/02/2018 right breast ultrasound. These images determined the best approach for access to perform aspiration or biopsy of this nodule. Scanning by Dr. Tobin. ULTRASOUND-GUIDED FNA ASPIRATION-LEFT BREAST Following sterile preparation as well as local skin, aspiration was performed by Dr. Tobin Under ultrasound guidance the 18-gauge hypodermic aspiration needle, was advanced to the area. Needle was positioned within the area and it was aspirated. Its size reduced under ultrasound observation and completely aspirated as documented on images.. . No residual Findings Compatible with a debris-filled cyst. Patient tolerated procedure well material from the cyst was submitted for cytology: CYTOLOGY REPORT. Negative for Malignancy. Bone cells benign ductal cells and proteinaceous material. Compatible with benign cyst.
== END ==
PROVIDERS: PCP Physician Assistant; Visit Provider Physician Assistant
DX: N63.10 Unspecified lump in the right breast, unspecified quadrant (principal); N63.20 Unspecified lump in the left breast, unspecified quadrant
CPT/HCPCS: 10005; 76642

== ENCOUNTER → 2018-10-01 17:13 | Outpatient (CLI) | payer MEDICAID, SELFPAY ==
[2018-10-01 18:56] LABS: Free T4 (Free Thyroxine) 0.93 ng/dl (0.76-1.46); Thyroid Stimulating Hormone 6.56 uIU/ml (0.358-3.740)
== END ==
PROVIDERS: Visit Provider Nurse Practitioner Family
DX: R53.83 Other fatigue (principal)
CPT/HCPCS: 84439; 84443

== ENCOUNTER → 2018-10-22 13:50 | Outpatient (CLI) | payer MEDICAID, SELFPAY ==
--- NOTE | 2018-10-22 13:51 | US_ITS ---
US thyroid HISTORY: ITS.REASON: enlarged thyroid ORDERING PHYSICIAN: Xochitl Ball APRN PATIENT AGE: 48 years Comparison: None FINDINGS: The right lobe is 4.6 x 3.2 x 1.7 cm. There is diffuse heterogeneous echogenicity. In the mid polar region on the right there is a 3.6 x 2 x 1.9 cm area of heterogeneous echogenicity consistent with a dominant nodule. The left lobe is 4.8 x 1.8 x 1.2 cm. There is a well-circumscribed 1 cm nodule in the upper pole is slightly hypoechoic. A heterogeneous 2.7 x 2 cm slightly irregular nodules noted in the mid polar region on the left. A 1.4 cm nodule present in the lower pole on the left which appears solid. IMPRESSION: 1. Enlarged thyroid gland with bilateral solid-appearing nodules with a dominant nodule both on the right and left. Consider fine-needle aspiration was sonographic guidance of both sides
== END ==
PROVIDERS: PCP Nurse Practitioner Family; Visit Provider Nurse Practitioner Family
DX: E04.9 Nontoxic goiter, unspecified (principal)
CPT/HCPCS: 76536

== ENCOUNTER → 2018-11-04 09:43 | Outpatient (CLI) | payer MEDICAID, SELFPAY ==
--- NOTE | 2018-11-04 09:52 | US_ITS ---
US FNA Thyroid right US FNA Thyroid left HISTORY: Bilateral thyroid nodules. Patient has bilateral dominant thyroid nodules. FNA is performed of the dominant nodule on each lobe. ORDERING PHYSICIAN: Wyatt Paredes MD PATIENT AGE: 48 years COMPARISON: 10/22/2018 TECHNIQUE: Following obtaining informed consent, using aseptic technique and local anesthesia with buffered lidocaine, fine-needle aspiration was performed of the nodule of interest in the mid polar region using sonographic guidance. 3 passes were made into the nodule with a 25-gauge needle. Specimen was given to cytology. This same technique was utilized for the left dominant thyroid nodule in the mid polar region.. The patient tolerated the procedure well without evidence of immediate complications and left the ultrasound suite in stable condition. CYTOLOGY: FNA right thyroid: Atypical. Please see pathology report FNA left thyroid: Benign follicular nodule IMPRESSION: Uneventful bilateral thyroid fine-needle aspiration was sonographic guidance with atypical findings on the right and benign findings on the left. Please see pathology report for further description
== END ==
PROVIDERS: PCP Nurse Practitioner Family; Visit Provider Emergency Medicine
DX: R93.89 Abnormal findings on diagnostic imaging of other specified body structures; E04.2 Nontoxic multinodular goiter
CPT/HCPCS: 10005; 10006; 76536; 76942

== ENCOUNTER → 2018-11-11 16:09 | Outpatient (CLI) | payer MEDICAID, SELFPAY ==
[2018-11-11 18:24] LABS: Blood Urea Nitrogen 10 mg/dL (7-18); Calcium 9.7 mg/dL (8.5-10.1); Creatinine,Serum 0.82 mg/dL (0.55-1.02); Estimated Glomerular Filt Rate 74 ml/min (>60); Free T4 (Free Thyroxine) 0.94 ng/dl (0.76-1.46); GFR (African American) 90 ML/MIN (>60); Thyroid Stimulating Hormone 7.55 uIU/ml (0.358-3.740)
[2018-11-13 18:08] LABS: Thyroid Peroxidase Antibodies 210 IU/mL (0-34)
[2018-11-13 23:27] LABS: Calcitonin <2.0 pg/mL (0.0-5.0)
[2018-11-16 08:50] LABS: Thyroid Stimulating Immunoglob <0.10 IU/L (0.00-0.55)
== END ==
PROVIDERS: Visit Provider Otolaryngology
DX: E04.1 Nontoxic single thyroid nodule (principal); E04.9 Nontoxic goiter, unspecified; R89.9 Unspecified abnormal finding in specimens from other organs, systems and tissues
CPT/HCPCS: 36415; 82308; 82310; 82565; 84439; 84443; 84445; 84520; 86376

== ENCOUNTER → 2019-01-19 09:30 | Outpatient (CLI) | payer MEDICAID, SELFPAY ==
--- NOTE | 2019-01-19 09:35 | CT_ITS ---
CT soft tissue neck w con CLINICAL INDICATION: ITS.REASON: abnormal growth on thyroid ORDERING PHYSICIAN: Keith Barger MD PATIENT AGE: 48 years COMPARISON: 10/22/2018. TECHNIQUE:Axial images obtained with sagittal and coronal reformats. All CT scans at the facility use one or more dose reduction, viz: automated exposure control, ma/kV adjustment per patient size (including targeted exams where dose is matched to indication, i.e. head), or iterative reconstruction technique. FINDINGS: Thyroid gland enhances fairly homogeneously and there appears to be only a few small hypodense foci, one of which along the right Isthmus measures 5.2 mm, midpole left thyroid lobe lesion is 3.9 mm and the left lobe upper pole lesion measures 5.3 mm. There is a subtle area of decreased enhancement involving the posterior mid and lower pole of the right thyroid lobe and this lesion is 1.4 cm. The anterior portions of the orbital cavities and facial area are not in the field of view. Visualized portions of the oral cavity areas and palatine tonsils are normal. Sellar glands appear normal. There are bilateral level 1, level 2 and a few level 3 lymph nodes which are small. The largest level 1 lymph node on the left side has short axis diameter of 9.1 mm. Tiny base, epiglottis, and laryngeal area are unremarkable. Airway structures are normal. There are a few punctate superior mediastinal noncalcified lymph nodes. There is some soft plaque formation involving the posterior wall of the proximal left ICA with less than 50% diameter stenosis. There is no acute osseous process. Impression: Subtle small hypodense thyroid nodule foci the largest posteriorly on the right measuring 1.4 cm. No abnormal enlarged adenopathy. Atherosclerotic disease with soft plaque causing less than 50% diameter stenosis of the proximal left ICA.
== END ==
PROVIDERS: PCP Emergency Medicine; Visit Provider Otolaryngology
DX: E04.1 Nontoxic single thyroid nodule (principal); E04.9 Nontoxic goiter, unspecified; R89.9 Unspecified abnormal finding in specimens from other organs, systems and tissues
CPT/HCPCS: 70491; Q9967

== ENCOUNTER → 2019-10-21 08:09 | Outpatient (CLI) | payer MEDICAID, SELFPAY ==
--- NOTE | 2019-10-21 08:15 | US_ITS ---
PROCEDURE: US THYROID CLINICAL INDICATION: thyroid nodule Follow-up thyroid nodules COMPARISON: THY US thyroid from 10/22/2018 FNATHY US FNA Thyroid from 11/04/2018 FINDINGS: Right lobe is 4.5 x 2.3 x 2.1 cm. There is diffuse heterogeneous echogenicity of the thyroid. There is a heterogeneous 2.9 by 1.8 cm nodule in the mid to lower pole region on the right not significantly changed.. The left lobe is 4.5 x 1.7 x 2 cm. There is diffuse multinodular contour of the left lobe of the thyroid gland. It is difficult to separate specific nodules. There may be 3 separate nodules as seen best on the sagittal image at 11 mm in the upper pole, 16 mm and mid pole, and 15 mm in the lower pole probably overall not significantly changed considering the difference in scanning technique. IMPRESSION: Multinodular goiter overall not significantly changed Dictated by: Dimitry Pierce MD 10/21/2019 17:05 Electronically signed by Dimitry Pierce MD in [place] 10/21/2019 17:05
== END ==
PROVIDERS: PCP Nurse Practitioner Family; Visit Provider Otolaryngology
DX: E03.9 Hypothyroidism, unspecified (principal)
CPT/HCPCS: 76536

== ENCOUNTER → 2019-10-27 12:13 | Outpatient (CLI) | payer MEDICAID, SELFPAY ==
--- NOTE | 2019-10-27 12:24 | XR_ITS ---
PROCEDURE: XR CHEST 2V CLINICAL HISTORY: chronic cough COMPARISON: CXR CHEST(2 VIEWS-NOT PORTABLE) from 10/27/2013 CXR CHEST(2 VIEWS-NOT PORTABLE) from 10/17/2015 [id number] XR chest portable from 06/07/[address] angio chest from 08/18/2018 FINDINGS: The cardiomediastinal silhouette and pulmonary vascularity are within normal limits. The lungs are clear without infiltrates, suspicious nodules, or pleural effusions. There is hyperinflation with prominent anterior clear space suggesting small airway disease. No acute bony anomalies IMPRESSION: Hyperinflation which may be seen with small airway disease such as COPD or bronchitis or asthma. Otherwise negative Dictated by: Dimitry Pierce MD 10/27/2019 12:46 Electronically signed by Dimitry Pierce MD in [place] 10/27/2019 12:46
[2019-10-28 09:25] LABS: Thyroid Peroxidase Antibodies 145 IU/mL (0-34)
[2019-10-29 19:24] LABS: Thyroid Stimulating Immunoglob <0.10 IU/L (0.00-0.55)
== END ==
PROVIDERS: Visit Provider Otolaryngology
DX: E03.9 Hypothyroidism, unspecified (principal); R13.10 Dysphagia, unspecified
CPT/HCPCS: 36415; 71046; 84445; 86376

== ENCOUNTER → 2020-02-01 16:48 | Outpatient (CLI) | payer MEDICAID, SELFPAY ==
--- NOTE | 2020-02-01 16:49 | MM_ITS ---
PROCEDURE: MM DIG SCREENING MAMM BI W/CAD Digital Breast Tomosynthesis Included CLINICAL INDICATION: screening There is a history of breast cancer patient's mother and grandmother. There have been previous biopsies on each breast for benign disease. COMPARISON: MG SCBI MM Dig screening mamm BI w/CAD from 11/05/2017 MG DXBI MM Dig mamm BI DX w/CAD from 11/27/2017 TECHNIQUE: Standard CC and MLO images and 3D Tomosynthesis was obtained. R2 CAD reviewed. FINDINGS: Moderate somewhat heterogenic fibroglandular densities are seen in the central portions of both breast. There is no suspicious lesion in either breast and no suspicious microcalcifications. IMPRESSION: Moderate breast density with no suspicious lesions seen BI-RAD Category: 1 Negative FOLLOW-UP: 1YR 1 Year Follow-up (A letter has been sent to the patient regarding results of the study.) Dictated Dr. Yoni Fang MD 02/03/2020 13:06 Dr. Yoni Garcia MD in [place] 02/03/2020 13:06
== END ==
PROVIDERS: PCP Nurse Practitioner Family; Visit Provider Nurse Practitioner Family
DX: Z12.31 Encounter for screening mammogram for malignant neoplasm of breast (principal)
CPT/HCPCS: 77063; 77067

== ENCOUNTER → 2020-03-07 13:13 | Outpatient (CLI) | payer MEDICAID, SELFPAY ==
--- NOTE | 2020-03-07 13:13 | US_ITS ---
PROCEDURE: US THYROID CLINICAL INDICATION: goiter Follow-up goiter COMPARISON: US US THYROID from 10/21/2019 FINDINGS: The isthmus is prominent at 4 mm. The right lobe is 4.3 x 2.3 x 2.4 cm with diffuse heterogeneous echogenicity with a nodular configuration. It is difficult to pick out a specific nodule due to the heterogeneous echogenicity. This had a similar appearance compared to the previous exam. Previously there was a 2.8 x 1.8 cm nodular area in the lower pole on the right which is not significantly changed. The left lobe is 4.3 x 1.8 x 1.9 cm with a nodular contour and heterogeneous echogenicity. As mentioned previously is difficult to determine specific nodules. Overall the appearance is not significantly changed. IMPRESSION: No change multinodular goiter with no new nodular areas apparent Dictated by: Dimitry Pierce MD 03/07/2020 18:02 Dimitry Pierce MD in [place] 03/07/2020 18:02
== END ==
PROVIDERS: PCP Nurse Practitioner Family; Visit Provider Otolaryngology
DX: E04.1 Nontoxic single thyroid nodule (principal)
CPT/HCPCS: 36415; 76536; 84439; 84443; 84445; 86376

== ENCOUNTER → 2020-03-07 14:08 | Outpatient (CLI) | payer MEDICAID, SELFPAY ==
[2020-03-07 15:51] LABS: Free T4 (Free Thyroxine) 2.34 ng/dl (0.78-2.19)
[2020-03-07 16:06] LABS: Thyroid Stimulating Hormone 0.02 uIU/mL (0.465-4.68)
[2020-03-09 10:08] LABS: Thyroid Peroxidase Antibodies 117 IU/mL (0-34)
[2020-03-10 09:23] LABS: Thyroid Stimulating Immunoglob <0.10 IU/L (0.00-0.55)
== END ==
PROVIDERS: Visit Provider Otolaryngology
DX: E04.1 Nontoxic single thyroid nodule (principal)
CPT/HCPCS: 36415; 84439; 84443; 84445; 86376

== ENCOUNTER → 2021-06-05 16:00 | Outpatient (CLI) | payer BC, MEDICARE, MEDICAID, SELFPAY | PROVIDERS: PCP Nurse Practitioner Family; Visit Provider Nurse Practitioner | DX: U07.1 COVID-19 (principal) | CPT/HCPCS: C9803; U0003; U0005 ==

== ENCOUNTER → 2021-09-27 10:38 | Outpatient (CLI) | payer BC, MEDICAID, SELFPAY ==
[2021-09-27 18:59] LABS: Basophils % 0.5 % (0.1-2.0); Eosinophils # 0.1 K/mm3 (0.0-0.4); Eosinophils % 0.9 % (0.1-12.0); Hematocrit 42.6 % (37.0-47.0); Hemoglobin 14.1 g/dL (12.2-16.2); Lymphocytes # 2.1 K/mm3 (0.7-4.5); Lymphocytes % 28.3 % (10-50); Mean Corpuscular Volume 84.6 fl (81-99); Mean Platelet Volume 10.1 fl (7.4-10.4); Monocytes # 0.3 K/mm3 (0.1-1.0); Monocytes % 4.6 % (1.7-9.3); Neutrophils # 4.8 K/mm3 (1.8-7.8); Neutrophils % 65.6 % (37.0-80.0); Platelet Count 280 K/mm3 (142-424); Red Blood Count 5.04 M/mm3 (4.20-5.40); Red Cell Distribution Width 15.4 % (11.5-17.5); White Blood Count 7.3 K/mm3 (4.8-10.8)
[2021-09-27 19:11] LABS: Alanine Aminotransferase 15 U/L (12-78); Albumin Level 4.5 g/dl (3.5-5.0); Albumin/Globulin Ratio 1.5 (1.1-1.8); Alkaline Phosphatase 91 U/L (38-126); Anion Gap 14.1 mEq/L (5-15); Aspartate Amino Transferase 24 U/L (14-36); Bilirubin,Total 0.4 mg/dl (0.2-1.3); Blood Urea Nitrogen 15 mg/dl (7-17); Calcium 9.6 mg/dl (8.4-10.2); Carbon Dioxide 26 mmol/L (22.0-30.0); Chloride 104 mmol/L (98-107); Estimated Glomerular Filt Rate 88 ml/min (>60); GFR (African American) 106 ML/MIN (>60); Globulin 3.1 g/dL (1.3-3.2); Glucose 80 mg/dl (74-100); Potassium 4.1 mmoL/L (3.5-5.1); Sodium 140 mmol/L (136-145); Total Protein,Serum 7.6 g/dl (6.3-8.2)
[2021-09-27 19:28] LABS: 25-OH Vitamin D, Total 16.1 ng/mL (30-100)
[2021-09-27 19:41] LABS: Thyroid Stimulating Hormone 2.29 uIU/mL (0.465-4.68)
== END ==
PROVIDERS: Visit Provider Nurse Practitioner Family
DX: R10.2 Pelvic and perineal pain (principal); E03.9 Hypothyroidism, unspecified; I10 Essential (primary) hypertension; E78.5 Hyperlipidemia, unspecified; E55.9 Vitamin D deficiency, unspecified; R53.83 Other fatigue; N30.01 Acute cystitis with hematuria
CPT/HCPCS: 80053; 82306; 84436; 84443; 85025; 87086

== ENCOUNTER → 2021-10-11 12:39 | Outpatient (CLI) | payer BC, MEDICAID, SELFPAY ==
--- NOTE | 2021-10-11 12:39 | MM_ITS ---
PROCEDURE INFORMATION: Exam: MG Bilateral Screening 3D Mammography Exam date and time: 10/11/2021 1:01 PM Age: 51 years old Clinical indication: Screening mammogram. TECHNIQUE: Imaging protocol: Bilateral Screening tomosynthesis and 2D mammography including computer-aided detection (CAD) when performed. COMPARISON: 1. MG MM DIG SCREENING MAMM BI W/CAD 02/01/2020 4:55 PM 2. MG DXBI MM Dig mamm BI DX w/CAD 11/27/2017 2:39 PM 3. MG SCBI MM Dig screening mamm BI w/CAD 11/05/2017 10:10 AM 4. OT FNABRE US FNA Breast 09/29/2018 11:02 AM FINDINGS: MAMMOGRAPHY: Breast composition: The breast tissue is heterogeneously dense, which may obscure small masses. Mass: None. Architectural distortion: No new or suspicious architectural distortion. Calcifications: No new or suspicious calcifications are present Asymmetric density: No new or suspicious asymmetric density is present Skin thickening: None. Axillary adenopathy: None. IMPRESSION: No mammographic evidence of malignancy. Recommend annual screening mammography unless otherwise clinically indicated. ASSESSMENT: BI-RADS category 1: Negative
== END ==
PROVIDERS: PCP Nurse Practitioner Family; Visit Provider Nurse Practitioner Family
DX: Z12.31 Encounter for screening mammogram for malignant neoplasm of breast (principal)
CPT/HCPCS: 77063; 77067

== ENCOUNTER → 2022-01-15 12:50 | Outpatient (CLI) | payer BC, MEDICAID, SELFPAY ==
--- NOTE | 2022-01-15 12:54 | XR_ITS ---
FINAL REPORT CLINICAL HISTORY: ganglion cyst FINDINGS: LEFT WRIST Three views demonstrate no acute fracture or dislocation. The visualized joint spaces are normally aligned. The soft tissues are unremarkable. IMPRESSION: No acute bony abnormality. Reviewed, Interpreted and Dictated by Cash Jurado III, MD Transcribed by Argelia Meza Authenticated and [facility]
== END ==
PROVIDERS: PCP Nurse Practitioner Family; Visit Provider Physician Assistant Surgical
DX: M67.432 Ganglion, left wrist (principal)
CPT/HCPCS: 73110

== ENCOUNTER 2022-01-15 14:06 | Outpatient (RCR) | payer BC, MEDICAID, SELFPAY | END 2022-01-15 15:00 | disposition home or self-care (01) | LOC: OT 14:06 | PROVIDERS: Visit Provider Orthopaedic Surgery | DX: M25.532 Pain in left wrist (principal); M67.432 Ganglion, left wrist | CPT/HCPCS: 97763 ==

== ENCOUNTER 2022-02-04 16:17 | Emergency (ER) | payer BC, MEDICAID, SELFPAY ==
[2022-02-04 16:38] VITALS: BP 182/110; PULSE 98; RESP 18; TEMP 37.1; O2SAT 96; BMI 37.8
[2022-02-04 16:43] LABS: UTC Strep Screen (Rapid) Negative (Negative)
--- NOTE | 2022-02-04 17:09 | HMH.EDUTC ---
[facility] Disposition Clinical Impression: Pharyngitis Disposition: Home, Self-Care Condition on Discharge: Good Instructions: DI for Strep Throat Additional Instructions: Drink plenty of fluids. Take tylenol or ibuprofen for pain or fever. Take the medications as directed. Follow up with your regular doctor. GO TO THE ER FOR ANY WORSENING SYMPTOMS Prescriptions: Benzonatate [Benzonatate 100mg cap] 100 mg PO TIDP PRN #30 cap PRN Reason: Cough Transmission Status: Received by [id number] methylPREDNISolone [Medrol] 4 mg PO DIRECTED 6 Days #21 packet Transmission Status: Received by [id number] Azithromycin [Z-Ezequiel 250mg Tab*] 250 mg PO UD DOSE PK #6 tab Transmission Status: Received by [id number] Referrals: Kyler Santamaria APRN [Primary Care Provider] - Time of Disposition: 17:13 Medical Decision Making - Medical Records Medical records reviewed: No: I reviewed the patient's medical records. - Desean Inquiry Pt receiving controlled substance: No Vital Signs: 02/04/22 16:38 02/04/22 17:18 Temperature 98.8 F 98.8 F Temperature Source Oral Pulse Rate 90 Pulse Rate [Left] 98 H Respiratory Rate 18 18 Blood Pressure 145/76 H Blood Pressure [Right Arm] 182/110 H Blood Pressure Mean [Right Arm] 134 02 Sat by Pulse Oximetry 96 - Lab Data Lab results reviewed: Yes: I reviewed the patient's lab results. Lab Results 02/04/22 16:30: Strep Scn Rapid Clinic Negative Orders (Tests/Meds): ORDERS Category Date Time Status Full Resp Panel w/COVID ([facility]) Routine Lab 02/04/22 17:14 Received Strep Screen Confirmation Stat Micro 02/04/22 16:30 Received [facility] HPI - General Stated complaint: sore throat Time Seen by Provider: 02/04/22 17:11 Mode of Arrival: Ambulatory Source of Information: Patient Limitations: No Limitations Description of Symptoms (Recalled from Triage Doc. by RN): patient comes in with complaints of sore throat. symptoms began 2 days ago. HEENT Symptoms (Recalled from RN notes): Yes Resp Symptoms (Recalled from RN notes): No Skin Symptoms (Recalled from RN notes): No MS Symptoms (Recalled from RN notes): No Functional Status (Recalled from RN notes): n/a - History of Present Illness Provider Complaint: She states that she has had a sore throat for the past 2 days. she has had chills and she has felt bad also. - Related Data Previous Rx's Medication Instructions Recorded ergocalciferol (vitamin D2) 1,250 50,000 unit PO QWEEK #12 cap 09/28/21 mcg (50,000 unit) capsule levothyroxine 88 mcg capsule 88 mcg PO DAILY #30 cap 09/30/21 aspirin 81 mg tablet,delayed 81 mg PO DAILY #30 tab 11/22/21 release bisoprolol fumarate 5 mg tablet 5 mg PO DAILY #30 tab 11/22/21 losartan 50 mg-hydrochlorothiazide 1 tab PO DAILY #30 tab 11/22/21 12.5 mg tablet rosuvastatin 10 mg tablet 10 mg PO DAILY #30 tab 11/22/21 Azithromycin [Z-Ezequiel 250mg Tab*] 250 mg PO UD DOSE PK #6 tab 02/04/22 Benzonatate [Benzonatate 100mg 100 mg PO TIDP PRN #30 cap 02/04/22 cap] methylPREDNISolone [Medrol] 4 mg PO DIRECTED 6 Days #21 02/04/22 packet Allergies Allergy/AdvReac Type Severity Reaction Status Date / Time ampicillin [AMPICILLIN] Allergy Unknown Verified 02/04/22 16:42 codeine [CODEINE] Allergy Unknown Verified 02/04/22 16:42 Penicillins [PENICILLINS] Allergy Unknown Verified 02/04/22 16:42 - Worker's Comp Is this a Worker's Comp case?: No [facility] History - Hepatitis A Screen Attestation statement:: This patient has been screened for Hepatitis A risk factors. I have reviewed the patient's past medical history: Yes Medical History: Reports:: Anxiety, Depression, Gastroesophageal Reflux Disease(GERD), Hyperlipidemia, Hypertension, Peripheral Vascular Disease, Renal Disease, Renal Insufficiency Denies:: Cancer, Diabetes Mellitus Type 1, Diabetes Mellitus Type 2, Internal Pacemaker, MRSA, Seizures Other Medical History:
[2022-02-04 17:18] VITALS: BP 145/76; PULSE 90; RESP 18; TEMP 37.1
[2022-02-04 17:39] LABS: Adenovirus,PCR Not Detected (NotDetected); Bordetella Pertussis Not Detected (NotDetected); Chlamydophila Pneumoniae, PCR Not Detected (NotDetected); Coronavirus 19, PCR Not Detected (NotDetected); Coronavirus 229E Not Detected (NotDetected); Coronavirus NL63 Not Detected (NotDetected); Coronavirus OC43 Not Detected (NotDetected); Coronovirus HKU1,PCR Not Detected (NotDetected); Human Metapneumovirus Not Detected (NotDetected); Influenza A, PCR Not Detected (NotDetected); Influenza AH1, 2009 Not Detected (NotDetected); Influenza AH1, PCR Not Detected (NotDetected); Influenza AH3,PCR Not Detected (NotDetected); Influenza B, PCR Not Detected (NotDetected); Mycoplasma Pneumoniae, PCR Not Detected (NotDetected); Parainfluenza 1, PCR Not Detected (NotDetected); Parainfluenza 2, PCR Not Detected (NotDetected); Parainfluenza 3, PCR Not Detected (NotDetected); Parainfluenza 4, PCR Not Detected (NotDetected); Respiratory Syncytial Virus Not Detected (NotDetected); Rhinovirus/Enterovirus Not Detected (NotDetected)
== END 2022-02-04 17:20 | disposition home or self-care (01) ==
PROVIDERS: Emergency Provider Nurse Practitioner Family; PCP Nurse Practitioner Family
DX: J02.9 Acute pharyngitis, unspecified (principal)
CPT/HCPCS: 87581; 87632; 87798; 87880; 99212; C9803; G0463; U0003; U0005

== ENCOUNTER → 2022-08-13 14:24 | Outpatient (CLI) | payer BC, MEDICAID, SELFPAY ==
[2022-08-13 15:27] LABS: Basophils # 0.1 K/mm3 (0-0.2); Basophils % 1.2 % (0.1-2.0); Eosinophils # 0.1 K/mm3 (0.0-0.4); Eosinophils % 1.7 % (0.1-12.0); Hematocrit 43.1 % (37.0-47.0); Lymphocytes # 2.1 K/mm3 (0.7-4.5); Lymphocytes % 29.8 % (10-50); Mean Corpuscular HGB Conc 32.5 g/dL (31.8-35.4); Mean Corpuscular Hemoglobin 28.1 pg (27.0-31.2); Mean Corpuscular Volume 86.3 fl (81-99); Mean Platelet Volume 8.9 fl (7.4-10.4); Monocytes # 0.3 K/mm3 (0.1-1.0); Monocytes % 3.8 % (1.7-9.3); Neutrophils # 4.6 K/mm3 (1.8-7.8); Neutrophils % 63.5 % (37.0-80.0); Platelet Count 295 K/mm3 (142-424); Red Blood Count 4.99 M/mm3 (4.20-5.40); White Blood Count 7.2 K/mm3 (4.8-10.8)
[2022-08-13 16:01] LABS: Alanine Aminotransferase 14 U/L (12-78); Albumin Level 4.7 g/dl (3.5-5.0); Albumin/Globulin Ratio 1.4 (1.1-1.8); Alkaline Phosphatase 93 U/L (38-126); Anion Gap 10.9 mEq/L (5-15); Aspartate Amino Transferase 21 U/L (14-36); Bilirubin,Total 0.4 mg/dl (0.2-1.3); Blood Urea Nitrogen 13 mg/dl (7-17); Calcium 9.5 mg/dl (8.4-10.2); Carbon Dioxide 31 mmol/L (22.0-30.0); Chloride 104 mmol/L (98-107); Chol/HDL Ratio 4.8 (1-3.5); Cholesterol 207 mg/dl (140-200); Estimated Glomerular Filt Rate 65 ml/min (>60); GFR (African American) 79 ML/MIN (>60); Globulin 3.3 g/dL (1.3-3.2); Glucose 114 mg/dl (74-100); HDL Cholesterol 43 mg/dl (40-60); Potassium 4.9 mmoL/L (3.5-5.1); Sodium 141 mmol/L (136-145); Triglycerides 178 mg/dl (30-150); VLDL Cholesterol 36 mg/dL (0-40)
[2022-08-13 16:13] LABS: C-Reactive Protein 1.4 mg/L (0-4); Direct LDL Cholesterol 115.63 mg/dL (100-129)
[2022-08-13 16:24] LABS: 25-OH Vitamin D, Total < 12.8 ng/mL (30-100)
[2022-08-13 16:33] LABS: Thyroid Stimulating Hormone 6.08 uIU/mL (0.465-4.68)
[2022-08-13 17:58] LABS: Hemoglobin A1C 5.7 % (4.0-6.0)
[2022-08-13 18:32] LABS: Erythrocyte Sedimentation Rate 10 mm/hr (0-30)
[2022-08-15 12:34] LABS: Anti-Cyclic Citrullinated Pept 5 units (0-19); RA Latex Turbid. 12.3 IU/mL (<14.0)
[2022-08-15 16:05] LABS: Anti-Centromere B Antibodies <0.2 AI (0.0-0.9); Anti-DNA (DS) Ab Qn 1 IU/mL (0-9); Anti-Jo-1 <0.2 AI (0.0-0.9); Anti-Smith Antibody <0.2 AI (0.0-0.9); Antichromatin Antibodies <0.2 AI (0.0-0.9); Antiscleroderma-70 Antibodies <0.2 AI (0.0-0.9); RNP Antibodies 0.2 AI (0.0-0.9); Sjogren's Anti-SS-A <0.2 AI (0.0-0.9); Sjogren's Anti-SS-B <0.2 AI (0.0-0.9)
== END ==
PROVIDERS: PCP Physician Assistant; Visit Provider Physician Assistant
DX: R63.4 Abnormal weight loss (principal); R97.1 Elevated cancer antigen 125 [CA 125]
CPT/HCPCS: 36415; 80053; 80061; 82306; 83036; 84443; 85025; 85651; 86140; 86161; 86200; 86225; 86235; 86431

== ENCOUNTER → 2022-09-02 14:20 | Outpatient (CLI) | payer BC, MEDICAID, SELFPAY ==
--- NOTE | 2022-09-02 14:20 | CT_ITS ---
FINAL REPORT TECHNIQUE: Axial CT images were performed through the neck. Coronal and sagittal reformats were submitted. This study was performed with techniques to keep radiation doses as low as reasonably achievable (ALARA). Individualized dose reduction techniques using automated exposure control or adjustment of mA and/or kV according to the patient's size were employed. CLINICAL HISTORY: swelling lymph node below chin FINDINGS: There are multiple small cervical lymph nodes. There is no mass or adenopathy. The nasopharynx, hypopharynx and oropharynx are unremarkable. The thyroid gland is diffusely enlarged which may represent thyroiditis or goiter. There is mild mucosal thickening in the maxillary sinuses. Limited images of the lung apices are unremarkable. IMPRESSION: No mass or adenopathy. Diffusely enlarged thyroid may represent thyroiditis or goiter. If indicated, this could be further evaluated with thyroid ultrasound. Reviewed, Interpreted and Dictated by Cash Jurado III, MD Transcribed by José Miguel Taylor Authenticated and . [facility]
== END ==
PROVIDERS: PCP Physician Assistant; Visit Provider Physician Assistant
DX: R59.9 Enlarged lymph nodes, unspecified (principal)
CPT/HCPCS: 70490

== ENCOUNTER → 2022-09-12 13:19 | Outpatient (CLI) | payer BC, MEDICAID, SELFPAY ==
--- NOTE | 2022-09-12 13:19 | US_ITS ---
FINAL REPORT CLINICAL HISTORY: goiter COMPARISON: 03/07/2020 FINDINGS: The thyroid is somewhat enlarged with a heterogeneous echotexture. The right lobe of the thyroid measures 4.4 x 2.6 x 1.6 cm. There is a solid, hyperechoic nodule measuring 4 x 4 x 4 mm consistent with TI-RADS category 3. There is a solid, hypoechoic nodule measuring 15 x 14 mm consistent with TI-RADS category 4. In addition, there is an isoechoic nodule measuring 22 x 17 mm consistent with TI-RADS category 3. The left lobe of the thyroid measures 4.1 x 2.4 x 1.9 cm. There is a solid, isoechoic nodule measuring 11 x 10 x 9 mm consistent with TI-RADS category 3. The isthmus measures 0.50 cm. IMPRESSION: Multiple nodules as detailed above. Consider ultrasound-guided biopsy for the 15 mm right thyroid lobe nodule consistent with TI-RADS category 4 or follow-up ultrasound. Reviewed, Interpreted and Dictated by Cash Jurado III, MD Transcribed by Lanny Nash Authenticated and [facility]
--- NOTE | 2022-09-12 13:19 | US_ITS ---
FINAL REPORT CLINICAL HISTORY: Pelvic pain - ? pelvic congestion syndrome FINDINGS: Transvaginal sonographic images of the pelvis were obtained. The uterus is surgically absent. The ovaries were not visualized. No mass or abnormal fluid collection identified. IMPRESSION: Postoperative changes from hysterectomy. No mass or abnormal fluid collection identified. Reviewed, Interpreted and Dictated by Cash Jurado III, MD Transcribed by Argelia Meza Authenticated and [facility]
== END ==
PROVIDERS: PCP Physician Assistant; Visit Provider Physician Assistant
DX: R10.2 Pelvic and perineal pain (principal); E04.9 Nontoxic goiter, unspecified
CPT/HCPCS: 76536; 76830

== ENCOUNTER → 2022-10-01 07:48 | Outpatient (CLI) | payer BC, MEDICAID, SELFPAY ==
--- NOTE | 2022-10-01 08:00 | US_ITS ---
FINAL REPORT CLINICAL HISTORY: .rt thyroid fna-- candis braun FINDINGS: ULTRASOUND GUIDED RIGHT THYROID BIOPSY HISTORY: Right thyroid nodule. ATTENDING PHYSICIAN: Dr. Desi MD PHYSICIAN DIALYSIS NURSE: Candis Garcia PA-C PROCEDURE: Informed consent was obtained from the patient. A time out procedure was performed. Ultrasound was utilized to localize the dominant right thyroid nodule. Patient was prepped and draped in the usual sterile fashion over the right neck. 1% Lidocaine was utilized for local anesthesia. Three 25-gauge FNA passes were made of the right thyroid nodule using ultrasound guidance. Tissue samples were placed in Cytolyt and sent to the lab for analysis. Patient tolerated the procedure well and left the department in good condition. IMPRESSION: Technically successful ultrasound-guided FNA of a dominant right thyroid nodule, as described. Reviewed, Interpreted and Dictated by Alex Weeks MD Transcribed by Candis Garcia PA-C Authenticated and [facility]
== END ==
PROVIDERS: PCP Physician Assistant; Visit Provider Nurse Practitioner Family
DX: E04.1 Nontoxic single thyroid nodule (principal)
CPT/HCPCS: 10005; 76536

== ENCOUNTER → 2022-10-07 17:19 | Outpatient (CLI) | payer BC, MEDICAID, SELFPAY ==
--- NOTE | 2022-10-07 17:23 | XR_ITS ---
PROCEDURE INFORMATION: Exam: XR Right Wrist Exam date and time: 10/07/2022 5:29 PM Age: 52 years old Clinical indication: Pain; Wrist; Right; Additional info: Right wrist pain, no injury or trauma TECHNIQUE: Imaging protocol: Radiologic exam of the right wrist. Views: 1 or 2 views. COMPARISON: No relevant prior studies available. FINDINGS: Bones/joints: Normal. Soft tissues: Normal. IMPRESSION: No acute findings.
== END ==
PROVIDERS: PCP Physician Assistant; Visit Provider Nurse Practitioner Family
DX: M25.531 Pain in right wrist (principal)
CPT/HCPCS: 73100

== ENCOUNTER 2022-12-10 17:29 | Emergency (ER) | payer BC, MEDICAID, SELFPAY ==
[2022-12-10 17:30] VITALS: BP 180/108; PULSE 100; RESP 16; TEMP 36.4; O2SAT 98; BMI 24.3
--- NOTE | 2022-12-10 17:36 | ECG_ITS ---
APPROVED REPORT Exam: Resting ECG HR:93 bpm ECG Measurements Heart Rate 93 AXES MN 148 P 73 QRSd 89 QRS 69 QT 355 T 66 QTc 405 Conclusion SINUS RHYTHM RIGHT ATRIAL Abnormality BORDERLINE ECG UNCONFIRMED REPORT Electronically signed by : Rico Perkins MD 12/12/2022 16:22:54
[2022-12-10 17:45] VITALS: BP 180/108; PULSE 91; O2SAT 68
--- NOTE | 2022-12-10 17:46 | HMH.EDGENADL ---
Discharge Plan Disposition Patient Disposition: Home, Self-Care Condition: Fair Prescriptions Prescriptions: New dicyclomine 20 mg tablet 20 mg PO QID PRN (Reason: abdominal pain) Qty: 20 0RF prochlorperazine maleate [Compazine] 10 mg tablet 10 mg PO Q8H PRN (Reason: nausea and vomiting) Qty: 14 0RF No Action atorvastatin 10 mg tablet 10 mg PO DAILY Qty: 90 3RF levothyroxine 25 mcg tablet 25 mcg PO DAILY Qty: 90 0RF ergocalciferol (vitamin D2) 1,250 mcg (50,000 unit) capsule 1,250 mcg PO WEEKLY Qty: 14 3RF cholecalciferol (vitamin D3) 50 mcg (2,000 unit) capsule 50 mcg PO DAILY Qty: 90 3RF moxifloxacin [Vigamox] 0.5 % drops 1 drp ophthalmic (eye) TID 7 Days Qty: 3 0RF tramadol 50 mg tablet 50 mg PO Q6H PRN (Reason: pain) Qty: 20 0RF Referrals Follow up/Referrals: Mirela Domingo PA [Primary Care Provider] - See instructions Clinical Impressions Clinical Impression: Acute gastroenteritis Instructions Patient Instructions: DI for Diarrhea and Traveler's Diarrhea -- Adult, DI for Diarrhea and Traveler's Diarrhea -- Child, DI for Nausea -- Adult, DI for Nausea -- Child Discharge ED Provider: Renato Doll Adult [facility] General Chief complaint: Nausea/Vomiting/Diarrhea Stated complaint: lung pain,pain all over Time Seen by Provider: 12/10/22 17:29 Related Data Previous Rx's Medication Instructions Recorded atorvastatin 10 mg tablet 10 mg PO DAILY #90 tabs 08/14/22 cholecalciferol (vitamin D3) 50 50 mcg PO DAILY #90 caps 08/14/22 mcg (2,000 unit) capsule ergocalciferol (vitamin D2) 1,250 1,250 mcg PO WEEKLY #14 caps 08/14/22 mcg (50,000 unit) capsule levothyroxine 25 mcg tablet 25 mcg PO DAILY #90 tabs 08/14/22 moxifloxacin 0.5 % eye drops 1 drp ophthalmic (eye) TID 7 days 08/19/22 (Vigamox) #3 mL tramadol 50 mg tablet 50 mg PO Q6H PRN pain #20 tabs 10/08/22 dicyclomine 20 mg tablet 20 mg PO QID PRN abdominal pain 12/10/22 #20 tabs prochlorperazine maleate 10 mg 10 mg PO Q8H PRN nausea and 12/10/22 tablet (Compazine) vomiting #14 tabs Allergies Allergy/AdvReac Type Severity Reaction Status Date / Time ampicillin [AMPICILLIN] Allergy Unknown Verified 10/07/22 16:40 codeine [CODEINE] Allergy Unknown Verified 10/07/22 16:40 Penicillins [PENICILLINS] Allergy Unknown Verified 10/07/22 16:40 PFSH [facility] Disclaimer: The information contained in this section may have been updated after the patient was seen, as this information can be updated by other users. Medical History Napier's palsy Chest pain Dyspnea PVC (premature ventricular contraction) Renal insufficiency Social History Smoking Status: Never smoker alcohol intake: never substance use type: denies use current occupational status: unemployed Travel in the last 8 weeks: None household members: family housing: house caffeine: Yes ROS Obtained: Yes All systems reviewed & no additional complaints except as documented Physical Exam General General appearance: alert Respiratory Respiratory exam: Present normal lung sounds bilaterally Cardiovascular Cardiovascular exam: Present regular rate Neurological Exam Neurological exam: Present alert Medical Decision Making Desean Inquiry Pt receiving controlled substance: No Vital Signs: 12/10/22 17:30 12/10/22 17:45 Temperature 97.6 F Temperature Source Oral Pulse Rate 91 H Pulse Rate [Left Radial] 100 H Respiratory Rate 16 Blood Pressure 180/108 H Blood Pressure [Right Arm] 180/108 H Blood Pressure Mean [Right Arm] 132 Blood Pressure Source [Right Arm] Automatic Cuff Blood Pressure Position [Right Arm] Sitting 02 Sat by Pulse Oximetry 98 68 L Oxygen Delivery Method Room Air Lab Data Lab Results 12/10/22 17:46: WBC 11.4 H, RBC 5.88 H, Hgb 16.2, Hct 49.9 H, MCV 84.9, MCH 27.5, MCHC
[2022-12-10 17:57] LABS: Chloride 97 mmol/L (98-107); Potassium 3.3 mmoL/L (3.5-5.1); Sodium 140 mmol/L (136-145)
[2022-12-10 17:59] LABS: Blood Urea Nitrogen 24 mg/dl (7-17); Estimated Glomerular Filt Rate 47 ml/min (>60); GFR (African American) 57 ML/MIN (>60)
[2022-12-10 18:00] LABS: Alanine Aminotransferase 24 U/L (12-78); Albumin Level 5.1 g/dl (3.5-5.0); Albumin/Globulin Ratio 1.2 (1.1-1.8); Alkaline Phosphatase 107 U/L (38-126); Anion Gap 20.3 mEq/L (5-15); Aspartate Amino Transferase 29 U/L (14-36); Bilirubin,Total 0.5 mg/dl (0.2-1.3); Calcium 9.6 mg/dl (8.4-10.2); Carbon Dioxide 26 mmol/L (22.0-30.0); Globulin 4.4 g/dL (1.3-3.2); Glucose 136 mg/dl (74-100); Lipase 34 U/L (23-300); Total Protein,Serum 9.5 g/dl (6.3-8.2)
[2022-12-10 18:13] LABS: Basophils # 0.1 K/mm3 (0-0.2); Basophils % 0.4 % (0.1-2.0); Eosinophils # 0.1 K/mm3 (0.0-0.4); Hematocrit 49.9 % (37.0-47.0); Hemoglobin 16.2 g/dL (12.2-16.2); Mean Corpuscular HGB Conc 32.4 g/dL (31.8-35.4); Mean Corpuscular Hemoglobin 27.5 pg (27.0-31.2); Mean Corpuscular Volume 84.9 fl (81-99); Mean Platelet Volume 8.7 fl (7.4-10.4); Monocytes # 0.6 K/mm3 (0.1-1.0); Monocytes % 5.5 % (1.7-9.3); Neutrophils # 9.6 K/mm3 (1.8-7.8); Neutrophils % 84.1 % (37.0-80.0); Platelet Count 208 K/mm3 (142-424); Red Blood Count 5.88 M/mm3 (4.20-5.40); White Blood Count 11.4 K/mm3 (4.8-10.8)
--- NOTE | 2022-12-10 18:17 | CT_ITS ---
PROCEDURE INFORMATION: Exam: CT Abdomen And Pelvis With Contrast Exam date and time: 12/10/2022 6:38 PM Age: 52 years old Clinical indication: Abdominal pain; Generalized; Additional info: Abd pain n/v/d TECHNIQUE: Imaging protocol: Computed tomography of the abdomen and pelvis with contrast. Radiation optimization: All CT scans at this facility use at least one of these dose optimization techniques: automated exposure control; mA and/or kV adjustment per patient size (includes targeted exams where dose is matched to clinical indication); or iterative reconstruction. Contrast material: ISOVUE; Contrast volume: 75 ml; Contrast route: IV; REPORTING DATA: Count of CT and Cardiac NM exams in prior 12 months: This patient has received [address] and 0 known cardiac nuclear medicine studies in the 12 months prior to the current study. COMPARISON: AGABDPEL CT angio abdomen pelvis 11/19/2017 11:12 AM FINDINGS: Lungs: Lung bases are clear. Liver: Normal. No mass. Gallbladder and bile ducts: Gallbladder has been removed. Mildly prominent bile ducts compatible with prior cholecystectomy. Pancreas: Normal. No ductal dilation. Spleen: Normal. No splenomegaly. Adrenal glands: Normal. No mass. Kidneys and ureters: Subcentimeter low-density lesion noted in the posterior mid to upper left kidney too small to characterize but likely a cyst. Kidneys and ureters otherwise unremarkable with no obstructing stones or uropathy. Stomach and bowel: Multiple diverticula throughout the sigmoid and descending colon. Fluid noted in the colon from the cecum through the distal transverse colon. Scattered fluid distended but not frankly dilated small bowel loops are noted in the abdomen and pelvis. GI tract structures otherwise unremarkable with no evident wall thickening allowing for incomplete distention. Appendix: Appendix is normal. No evidence of appendicitis. Intraperitoneal space: See Reproductive finding. Vasculature: Atherosclerotic changes of the aorta and iliacs noted. No evidence of aneurysm. Lymph nodes: Unremarkable. No enlarged lymph nodes. Urinary bladder: Unremarkable as visualized. Reproductive: Status post hysterectomy. Pelvic viscera otherwise unremarkable with no pelvic mass or free fluid. Bones/joints: Unremarkable. No acute fracture. Soft tissues: Unremarkable. IMPRESSION: 1. Some scattered fluid distended small bowel loops that may be associated with gastroenteritis. Fluid distended colon suggesting diarrheal illness which may also be associated with gastroenteritis. 2. Additional nonemergent findings as above. COMMENTS: Consistent with the [employer]'s Incidental Findings Committee white paper (J Am Mitch Radiol 2018): Any incidental renal lesion less than 1 cm or classified as too small to characterize, or any incidental cystic renal lesion characterized as simple-appearing, is likely benign. No follow-up imaging is recommended for these lesions per consensus recommendations based on imaging criteria.
[2022-12-10 19:52] VITALS: BP 157/78; PULSE 87; RESP 16; TEMP 36.4; O2SAT 97
== END 2022-12-10 19:54 | disposition home or self-care (01) ==
PROVIDERS: Emergency Provider Emergency Medicine; PCP Physician Assistant
DX: K52.9 Noninfective gastroenteritis and colitis, unspecified (principal); R07.81 Pleurodynia
CPT/HCPCS: 74177; 80053; 83690; 85025; 93005; 96374; 99285; J2405; Q9967

== ENCOUNTER 2023-01-06 18:23 | Emergency (ER) | payer BC, MEDICAID, SELFPAY ==
[2023-01-06 18:24] VITALS: BP 132/78; PULSE 77; RESP 18; TEMP 36.8; O2SAT 99; BMI 23.3
--- NOTE | 2023-01-06 18:27 | XR_ITS ---
PROCEDURE INFORMATION: Exam: XR Right Hand Exam date and time: 01/06/2023 6:27 PM Age: 52 years old Clinical indication: Pain; Hand; Right; Additional info: Fall right hand pain , PT tried catching her self TECHNIQUE: Imaging protocol: Radiologic exam of the right hand. Views: 3 or more views. COMPARISON: CR XR WRIST RT 2V 10/07/2022 5:29 PM FINDINGS: Bones/joints: See Soft tissues finding. Soft tissues: Mild soft tissue swelling without acute osseous abnormality. IMPRESSION: Mild soft tissue swelling without acute osseous abnormality.
--- NOTE | 2023-01-06 18:27 | XR_ITS ---
PROCEDURE INFORMATION: Exam: XR Right Wrist Exam date and time: 01/06/2023 6:28 PM Age: 52 years old Clinical indication: Pain; Wrist; Right; Additional info: Fall right wrist pain , PT tried catching her self TECHNIQUE: Imaging protocol: Radiologic exam of the right wrist. Views: 3 or more views. COMPARISON: CR XR WRIST RT 2V 10/07/2022 5:29 PM FINDINGS: Bones/joints: See Soft tissues finding. Soft tissues: Moderate dorsal soft tissue swelling without acute osseous abnormality. IMPRESSION: Moderate dorsal soft tissue swelling without acute osseous abnormality. If there is high clinical suspicion for occult fracture recommend conservative immobilization and follow-up radiographs in 10-14 days.
--- NOTE | 2023-01-06 18:48 | EXP.UTC ---
Discharge Plan Disposition Patient Disposition: Home, Self-Care Prescriptions Prescriptions: No Action atorvastatin 10 mg tablet 10 mg PO DAILY Qty: 90 3RF levothyroxine 25 mcg tablet 25 mcg PO DAILY Qty: 90 0RF ergocalciferol (vitamin D2) 1,250 mcg (50,000 unit) capsule 1,250 mcg PO WEEKLY Qty: 14 3RF cholecalciferol (vitamin D3) 50 mcg (2,000 unit) capsule 50 mcg PO DAILY Qty: 90 3RF moxifloxacin [Vigamox] 0.5 % drops 1 drp ophthalmic (eye) TID 7 Days Qty: 3 0RF tramadol 50 mg tablet 50 mg PO Q6H PRN (Reason: pain) Qty: 20 0RF dicyclomine 20 mg tablet 20 mg PO QID PRN (Reason: abdominal pain) Qty: 20 0RF prochlorperazine maleate [Compazine] 10 mg tablet 10 mg PO Q8H PRN (Reason: nausea and vomiting) Qty: 14 0RF Referrals Follow up/Referrals: Mirela Doimngo PA [Primary Care Provider] - See instructions Tarik Duffy DO [Staff Physician] - See instructions Activity Restrictions/Add. Instructions Additional Instructions/Restrictions: Rest the extremity, Wear the moira wrap for compression, Elevate the extremity as tolerated while you are resting. Take ibuprofen or tylenol for pain. Follow up with Dr. Duffy (orthopedics). Sometimes there can be fractures that don't show up well on the first set of x-rays. I put in a referral but you need to call his office and schedule an appointment. Follow up with your regular doctor. GO TO THE ER FOR ANY WORSENING SYMPTOMS Clinical Impressions Clinical Impression: Right wrist sprain, Sprain of hand, right Instructions Patient Instructions: DI for Wrist Sprain, DI for Hand Injury Discharge ED Provider: Zay Hobbs [facility] General Stated complaint: AO01/04 fall LT hand inj Mode of Arrival: Ambulatory Source of Information: Patient Limitations: No Limitations Time Seen by Provider: 01/06/23 18:48 Description of Symptoms (Recalled from Triage Doc. by RN): Patient complains of falling on Thursday and injured on her right hand. HEENT Symptoms (Recalled from RN notes): No Resp Symptoms (Recalled from RN notes): No Skin Symptoms (Recalled from RN notes): No MS Symptoms (Recalled from RN notes): Yes Functional Status (Recalled from RN notes): wnl History of Present Illness Provider Complaint: She states that she fell 2 nights ago. She came down on her right hand. She has had right wrist and hand pain since then. She denies any other injury. Related Data Previous Rx's Medication Instructions Recorded atorvastatin 10 mg tablet 10 mg PO DAILY #90 tabs 08/14/22 cholecalciferol (vitamin D3) 50 50 mcg PO DAILY #90 caps 08/14/22 mcg (2,000 unit) capsule ergocalciferol (vitamin D2) 1,250 1,250 mcg PO WEEKLY #14 caps 08/14/22 mcg (50,000 unit) capsule levothyroxine 25 mcg tablet 25 mcg PO DAILY #90 tabs 08/14/22 moxifloxacin 0.5 % eye drops 1 drp ophthalmic (eye) TID 7 days 08/19/22 (Vigamox) #3 mL tramadol 50 mg tablet 50 mg PO Q6H PRN pain #20 tabs 10/08/22 dicyclomine 20 mg tablet 20 mg PO QID PRN abdominal pain 12/10/22 #20 tabs prochlorperazine maleate 10 mg 10 mg PO Q8H PRN nausea and 12/10/22 tablet (Compazine) vomiting #14 tabs Allergies Allergy/AdvReac Type Severity Reaction Status Date / Time ampicillin [AMPICILLIN] Allergy Unknown Verified 10/07/22 16:40 codeine [CODEINE] Allergy Unknown Verified 10/07/22 16:40 Penicillins [PENICILLINS] Allergy Unknown Verified 10/07/22 16:40 Worker's Comp Is this a Worker's Comp case?: No [facility] Disclaimer: The information contained in this section may have been updated after the patient was seen, as this information can be updated by other users. Medical History Napier's palsy Chest pain Dyspnea PVC (premature ventricular contraction) Renal insufficiency Social History Smoking Status: Never smoker alcohol intake: never substance use type: denies
[2023-01-06 19:07] VITALS: BP 132/78; PULSE 77; RESP 18; TEMP 36.8; O2SAT 99
== END 2023-01-06 19:13 | disposition home or self-care (01) ==
LOC: UTC 18:27
PROVIDERS: Emergency Provider Nurse Practitioner Family; PCP Physician Assistant
DX: S63.91XA Sprain of unspecified part of right wrist and hand, initial encounter (principal); W19.XXXA Unspecified fall, initial encounter
CPT/HCPCS: 73110; 73130; 99212; 99214; G0463

== ENCOUNTER → 2023-01-26 14:30 | Outpatient (CLI) | payer BC, MEDICAID, SELFPAY ==
--- NOTE | 2023-01-26 14:34 | XR_ITS ---
FINAL REPORT CLINICAL HISTORY: right wrist pain, fell 2 wks ago, LROM COMPARISON: 01/06/2023 FINDINGS: RIGHT WRIST Three views demonstrate no acute fracture or dislocation. There is mild degenerative change of the radial aspect of the wrist. The soft tissues are unremarkable. IMPRESSION: No acute bony abnormality. If pain persists, correlation with MRI might be helpful to rule out a subtle or occult fracture. Reviewed, Interpreted and Dictated by Cash Jurado III, MD Transcribed by Annmarie Thakkar Authenticated and [facility]
== END ==
PROVIDERS: PCP Physician Assistant; Visit Provider Physician Assistant
DX: M25.531 Pain in right wrist (principal)
CPT/HCPCS: 73110

== ENCOUNTER 2023-02-27 13:29 | Outpatient (RCR) | payer BC, MEDICAID, SELFPAY ==
--- NOTE | 2023-02-27 14:47 | HMH.OTOPEV ---
OT Inpatient Evaluation Rehab OT Outpatient Eval Start: 02/27/23 14:23 Freq: Status: Active Protocol: Document 02/27/23 14:23 NATHAN (Rec: 02/27/23 14:47 NATHAN [id number]) E-signed By Salma Mcgee, OT Outpatient Therapy Subjective History Subjective History Pt is a 53 year old female who reports to therapy for initial evaluation to right wrist. Pt explains she has had pain in right wrist on and off for years . However, her pain and symptoms have increased when she fell and landed on the right wrist ~1 month ago. After she fell, she also developed a palpable knot below her thumb base. Her symtpoms include pain, decreased AROM, decreased strength, decreased lithographers printer strength, numbness, and tingling. Pt is left hand dominant. Pt has also had a nerve conduction test with finding of normal. Pt will continue to be see in order to address right wrist deficits to increase overall functional use and daily activities. Short term goals: 1. Pt will increase right wrist flexion to 75 degrees in order to complete daily account information clerk independently ~50% of the time. 2. Pt will increase R wrist RD/UD to 15/30 degrees degrees to complete upper body dressing independently ~50% of the time.. 3. Pt will increase strength to 3+/5 throughout right wrist in order to complete heavier household tasks (laundry, mopping, vacuuming) independently ~50% of the time . 4. Pt will verbalize decreased pain levels at worst in R wrist to a 5/10 in order to complete daily ADLs
== END 2023-02-27 13:30 | disposition home or self-care (01) ==
LOC: OT 13:29
PROVIDERS: PCP Physician Assistant; Visit Provider Physician Assistant
DX: M25.531 Pain in right wrist (principal); R20.0 Anesthesia of skin
CPT/HCPCS: 97166

== ENCOUNTER 2023-03-24 18:22 | Emergency (ER) | payer BC, MEDICAID, SELFPAY ==
[2023-03-24 18:40] VITALS: BP 175/110; PULSE 82; RESP 22; TEMP 36.7; O2SAT 98; BMI 21.2
--- NOTE | 2023-03-24 19:01 | EXP.UTC ---
Discharge Plan Disposition Patient Disposition: Home, Self-Care Condition: Good Prescriptions Prescriptions: New benzonatate 100 mg capsule 100 mg PO TID PRN (Reason: cough) Qty: 30 0RF azithromycin [Zithromax Z-Ezequiel] 250 mg tablet See Rx Instructions .ROUTE .COMPLEX 5 Days Qty: 6 0RF Rx Instructions: For 250 mg dose pack: take 500 mg today (day 1), then 250 mg for 4 days (days 2-5) prednisone [prednisone] 20 mg tablet 20 mg PO BID 5 Days Qty: 10 0RF albuterol sulfate [Proventil HFA] 90 mcg/actuation HFA aerosol inhaler 1 - 2 inh inhalation Q6H PRN (Reason: shortness of breath or wheezing) Qty: 8.5 0RF Referrals Follow up/Referrals: Mirela Domingo PA [Primary Care Provider] - See instructions Activity Restrictions/Add. Instructions Additional Instructions/Restrictions: Start antibiotic today. Be sure to complete entire prescription even if feeling better Monitor temp. Tylenol every 4 hours as needed and / or ibuprofen every 6 hours as needed ( As long as your primary care physician has told you that it ok to take both. For fever/aches/pains ER if no less than 101 despite Tylenol or Motrin Humidifier/vaporizer or hot steamy shower Inhaler every 4-6 hours as needed like we discussed. If unsure how to use it, ask pharmacist to demonstrate how. Should help open airways and improve cough,wheezing, and shortness of breath Mucinex during the day for your cough and cough suppressant only at night. Be sure to drink lots of water. Insurance may not cover a prescriptions for mucinex. Might be cheaper to get 400mg tablets and take 2 tablet in the morning, mid-day and evening with lots of water. *Tessalon Perles will not cause drowsiness but use at bedtime to help stop cough so that you may get some rest. *Start steroid tomorrow. Helps with inflammation therefore, cough and wheezing. Follow directions on the package. Reviewed side effects. Patient reports taking them before. Follow up IMMEDIATELY for new or worsening of symptoms OR no noticeable improvement over the next 48-72 hours. 911 immediately for any life threatening symptoms such as chest pain or difficulty breathing Clinical Impressions Clinical Impression: Bronchitis Instructions Patient Instructions: Acute Bronchitis, Cough Discharge ED Provider: Aliya Thakkar [facility] HPI General Stated complaint: SOA, cough, Time Seen by Provider: 03/24/23 19:01 History of Present Illness Provider Complaint: Patient states that she has had a bad cough for several weeks that hasnt got any better State that she coughs up some mucous every now and then States that feels like it does when she gets bronchtitis and having some congestion in her chest States that last night she had a coughing episode and made her feel SOA for a little bit and she used her daughters inhaler and it helped so today her family wanted her to come in and get something to help Related Data Previous Rx's Medication Instructions Recorded albuterol sulfate 90 mcg/actuation 1 - 2 inh inhalation Q6H PRN 03/24/23 aerosol inhaler (Proventil HFA) shortness of breath or wheezing #8.5 grams azithromycin 250 mg tablet See Rx Instructions PO .COMPLEX 5 03/24/23 (Zithromax Z-Ezequiel) days #6 tabs benzonatate 100 mg capsule 100 mg PO TID PRN cough #30 caps 03/24/23 prednisone 20 mg tablet 20 mg PO BID 5 days #10 tabs 03/24/23 Allergies Allergy/AdvReac Type Severity Reaction Status Date / Time ampicillin [AMPICILLIN] Allergy Unknown Verified 01/26/23 13:15 codeine [CODEINE] Allergy Unknown Verified 01/26/23 13:15 Penicillins [PENICILLINS] Allergy Unknown Verified 01/26/23 13:15 [facility] Disclaimer: The information contained in this section may have been updated after the patient was seen, as this information can be updated by other users. Medical History Napier's palsy Chest
[2023-03-24 19:35] VITALS: BP 175/110; PULSE 82; RESP 22; TEMP 36.7; O2SAT 98
== END 2023-03-24 19:48 | disposition home or self-care (01) ==
PROVIDERS: Emergency Provider Nurse Practitioner; PCP Physician Assistant
DX: J20.9 Acute bronchitis, unspecified (principal)
CPT/HCPCS: 96372; 99212; 99214; G0463

== ENCOUNTER 2023-07-05 15:45 | Emergency (ER) | payer BC, MEDICAID, SELFPAY ==
[2023-07-05] VITALS (7 sets, daily range): BP systolic 144–201; BP diastolic 103–136; PULSE 64–89; RESP 16–20; TEMP 36.7–36.8; O2SAT 92–99; BMI 24.1
--- NOTE | 2023-07-05 16:00 | ED_ITS ---
Discharge Plan Disposition Patient Disposition: Home, Self-Care Condition: Good Prescriptions Prescriptions: New methocarbamol 500 mg tablet 500 mg PO Q6H PRN (Reason: pain) Qty: 30 0RF lidocaine 5 % adhesive patch,medicated 1 patch topical DAILY PRN (Reason: pain) Qty: 30 0RF Rx Instructions: leave on most painful area for up to 12 hrs No Action benzonatate 100 mg capsule 100 mg PO TID PRN (Reason: cough) Qty: 30 0RF azithromycin [Zithromax Z-Ezequiel] 250 mg tablet See Rx Instructions .ROUTE .COMPLEX 5 Days Qty: 6 0RF Rx Instructions: For 250 mg dose pack: take 500 mg today (day 1), then 250 mg for 4 days (days 2-5) prednisone [prednisone] 20 mg tablet 20 mg PO BID 5 Days Qty: 10 0RF albuterol sulfate [Proventil HFA] 90 mcg/actuation HFA aerosol inhaler 1 - 2 inh inhalation Q6H PRN (Reason: shortness of breath or wheezing) Qty: 8.5 0RF Referrals Follow up/Referrals: Mirela Domingo PA [Primary Care Provider] - See instructions Activity Restrictions/Add. Instructions Additional Instructions/Restrictions: Your workup did not show any obvious explanation for your pain. Specifically, no evidence of heart attack or other emergency issues at this time. You may have strained something. Did show that you have a little bit of dilation in your kidney system, though I am not certain that this is contributing to your symptoms at all. Please follow-up with your primary care provider for further assessment. Please return to the emergency department if you develop any new or worsening symptoms or become concerned for your health. Please take Tylenol and ibuprofen as needed for pain. Please use lidocaine patch and take Robaxin as needed for pain. Clinical Impressions Clinical Impression: Hypertension, Upper back pain on left side, Pelviectasis of kidney Instructions Patient Instructions: DI for Low Back Pain Discharge ED Provider: Dick Dimas Adult HPI General Chief complaint: Back Pain/Injury Stated complaint: back and right arm pain Time Seen by Provider: 07/05/23 16:00 Mode of Arrival: Ambulatory Source of Information: Patient Limitations: No Limitations Description of Symptoms (Recalled from ER Triage Doc. by RN): Patient states she was doing the dishes and getting onto her grandchildren when all of the sudden her right lower back began to hurt. States it hurts when she takes a deep breath or when she moves. History of Present Illness HPI narrative: 53-year-old female, history of hypertension presents with sudden onset severe left-sided posterior chest/flank pain. She reports that she was doing dishes and moving around, but did not report any acute strain or movement that should cause injury. She reports pain is severe, 10 out of 10. She reports that she has had kidney stones but this feels very different and higher. She denies any recent fever or illness. Reports no anterior chest pain pain or pressure. Related Data Previous Rx's Medication Instructions Recorded albuterol sulfate 90 mcg/actuation 1 - 2 inh inhalation Q6H PRN 03/24/23 aerosol inhaler (Proventil HFA) shortness of breath or wheezing #8.5 grams azithromycin 250 mg tablet See Rx Instructions PO .COMPLEX 5 03/24/23 (Zithromax Z-Ezequiel) days #6 tabs benzonatate 100 mg capsule 100 mg PO TID PRN cough #30 caps 03/24/23 prednisone 20 mg tablet 20 mg PO BID 5 days #10 tabs 03/24/23 lidocaine 5 % topical patch 1 patch topical DAILY PRN pain #30 07/05/23 ea methocarbamol 500 mg tablet 500 mg PO Q6H PRN pain #30 tabs 07/05/23 Allergies Allergy/AdvReac Type Severity Reaction Status Date / Time ampicillin [AMPICILLIN] Allergy Unknown Verified 01/26/23 13:15 codeine [CODEINE] Allergy Unknown Verified 01/26/23 13:15 Penicillins [PENICILLINS] Allergy Unknown Verified 01/26/23 13:15 [facility] Disclaimer: The information contained in this section may have been updated after the patient was seen, as this information can be updated by other users. Medical History Napier's palsy Chest pain Dyspnea PVC (premature ventricular contraction) Renal insufficiency Social History Smoking Status: Unknown if ever smoked alcohol intake: never substance use type: denies use current occupational status: unemployed Travel in the last 8 weeks: None household members: family housing: house caffeine: Yes ROS Obtained: Yes All systems reviewed & no additional complaints except as documented Physical Exam General General appearance: alert and anxious Head Head exam: atraumatic and normocephalic Eye Eye exam: Present normal appearance, PERRL and EOMI ENT ENT exam: Present normal oropharynx and normal external ear exam Neck Neck exam: Present normal inspection and full ROM Chest Chest inspection: Present normal inspection, symmetric chest wall rise and tenderness (Left lateral/posterior thoracic rib cage) Respiratory Respiratory exam: Present normal lung sounds bilaterally; Absent respiratory distress Cardiovascular Cardiovascular exam: Present regular rate and normal rhythm Abdominal Exam Abdominal exam: Present soft; Absent distention, tenderness or guarding Extremities Exam Extremities exam: Present normal inspection; Absent edema or joint swelling Back Exam Back exam: Present normal inspection; Absent tenderness Neurological Exam Neurological exam: Present alert and oriented X3; Absent motor sensory deficit Psychiatric Psychiatric exam: Present normal affect and normal mood Skin Skin exam: Present warm, dry and normal color Lymphatic Lymphatic Findings: no adenopathy Medical Decision Making Medical Records Medical records reviewed: Yes I reviewed the patient's medical records. [place] Inquiry Pt receiving controlled substance: No [place] was queried for this patient: No Vital Signs: 07/05/23 15:46 07/05/23 16:00 07/05/23 17:25 Temperature 98.2 F Temperature Source Oral Pulse Rate 78 67 Pulse Rate [Radial] 89 Respiratory Rate 18 20 Blood Pressure 144/108 H 187/136 H Blood Pressure [Right Arm] 170/113 H Blood Pressure Mean 124 Blood Pressure Mean [Right Arm] 132 Blood Pressure Source [Right Arm] Automatic Cuff Blood Pressure Position [Right Arm] Sitting 02 Sat by Pulse Oximetry 99 95 92 L Oxygen Delivery Method Room Air 07/05/23 18:01 07/05/23 18:30 07/05/23 19:20 Temperature 98.1 F Temperature Source Oral Pulse Rate 68 78 64 Pulse Rate [Radial] Respiratory Rate 20 Blood Pressure 183/103 H 198/115 H 201/103 H Blood Pressure [Right Arm] Blood Pressure Mean 142 Blood Pressure Mean [Right Arm] Blood Pressure Source [Right Arm] Blood Pressure Position [Right Arm] 02 Sat by Pulse Oximetry 96 96 95 Oxygen Delivery Method Room Air 07/05/23 21:23 Temperature 98.1 F Temperature Source Pulse Rate 72 Pulse Rate [Radial] Respiratory Rate 16 Blood Pressure 180/103 H Blood Pressure [Right Arm] Blood Pressure Mean Blood Pressure Mean [Right Arm] Blood Pressure Source [Right Arm] Blood Pressure Position [Right Arm] 02 Sat by Pulse Oximetry Oxygen Delivery Method Lab Data Lab results reviewed: Yes I reviewed the patient's lab results. Lab Results 07/05/23 16:27: WBC 6.4, RBC 5.08, Hgb 14.6, Hct 43.3, MCV 85.2, MCH 28.7, MCHC 33.7, RDW 14.0, Plt Count 235, MPV 9.6, Neut % (Auto) 67.8, Lymph % (Auto) 23.6, [place]urry % (Auto) 5.7, Eos % (Auto) 2.5, Baso % (Auto) 0.4, Neut # (Auto) 4.4, Lymph # (Auto) 1.5, Scurry # (Auto) 0.4, Eos # (Auto) 0.2, Baso # (Auto) 0.0, Sodium 139, Potassium 5.5 H, Chloride 101, Carbon Dioxide 28, Anion Gap 15.5 H, BUN 17, Creatinine 0.80, Estimated Creat Clear 83, Estimated GFR 75, Est GFR ( Amer) 90, Glucose 108 H, Calcium 9.1, Total Bilirubin 1.6 H, AST 52 H, ALT 19, Alkaline Phosphatase 67, Troponin I 0.02, NT-Pro-B Natriuret Pep 241 H, Total Protein 8.9 H, Albumin 5.0, Globulin 3.9 H, Albumin/Globulin Ratio 1.3 07/05/23 17:25: Urine Color Yellow, Urine Appearance Clear, Urine pH 6.0, Ur Specific [place] >= 1.030, Urine Protein Negative, Urine Glucose (UA) Negative, Urine Ketones Negative, Urine Blood 2+, Urine Nitrate Negative, Urine Bilirubin Negative, Urine Urobilinogen 0.2, Ur Leukocyte Esterase 1+ A, Urine RBC None, Urine WBC 5-10, Ur Squamous Epith Cells 3-5, Urine Bacteria 1+ 07/05/23 19:09: Potassium 3.5 D, Troponin I < 0.01 07/05/23 16:27 07/05/23 19:09 Orders (Tests/Meds): ED MEDICATIONS Discontinued Medications Generic Name Dose Route Start Last Admin Trade Name Freq PRN Reason Stop Dose Admin Hydromorphone HCl 0.5 mg 07/05/23 16:11 07/05/23 18:33 Hydromorphone 2mg/Ml Syringe IV 07/05/23 16:12 Not Given ONCE ONE Lactated Ringer's 1,000 mls @ 999 mls/hr 07/05/23 17:15 07/05/23 17:22 Lactated Ringer's 1000 Ml Bag IV 07/05/23 18:15 999 mls/hr .Q1H1M FABIOLA Administration Iopamidol 100 ml 07/05/23 17:36 07/05/23 17:39 Iopamidol-370 (76%);100ml Bottle IV 07/05/23 17:37 100 ml ONCE ONE Administration Ketorolac Tromethamine 30 mg 07/05/23 18:22 07/05/23 18:26 Ketorolac 30mg/Ml Vial IV 07/05/23 18:23 30 mg ONCE ONE Administration Lidocaine 1 each 07/05/23 21:16 Lidocaine 5% Transdermal Patch TP 07/05/23 21:17 ONCE ONE Methocarbamol 500 mg 07/05/23 16:56 07/05/23 17:08 Methocarbamol 500mg Tablet PO 07/05/23 16:57 500 mg ONCE ONE Administration Ondansetron HCl 4 mg 07/05/23 16:11 07/05/23 18:33 Ondansetron 4mg/2ml Vial IV 07/05/23 16:12 Not Given ONCE ONE Sodium Chloride 50 ml 07/05/23 17:36 07/05/23 17:39 0.9 % Sodium Chloride 50 Ml Vial IV 07/05/23 17:37 50 ml ONCE ONE Administration Sodium Chloride 10 ml 07/05/23 17:36 07/05/23 17:39 Sodium Chloride 0.9% 10ml Syr (Rad Only) IV 08/04/23 17:35 10 ml NEEDED PRN Administration Maintain IV Site ORDERS Category Date Time Status CT abdomen pelvis wo con Stat Cat Scan 07/05/23 18:39 Completed CTA Chest [CT angio chest - dissection] Stat Cat Scan 07/05/23 16:10 Completed BNP [Brain Natriuretic Peptide] Stat Lab 07/05/23 16:27 Completed CBC w/Auto Diff [Complete Blood Count Auto Diff] Stat Lab 07/05/23 16:27 Completed CMP [Comprehensive Metabolic Panel] Stat Lab 07/05/23 16:27 Completed Potassium Stat Lab 07/05/23 19:09 Completed Troponin I Q3H Lab 07/05/23 16:27 Completed Troponin I Q3H Lab 07/05/23 19:09 Completed UA [Urinalysis and Microscopic] Stat Lab 07/05/23 17:25 Completed Urine Culture Stat Micro 07/05/23 17:25 Received ECG initial Besson Routine Y 07/05/23 16:11 Completed ECG Data Tracing #1: I reviewed this ECG and interpreted as documented below: Sinus rhythm, rate of 73, no concerning ST or T wave changes ECG initial impression date: 07/05/23 ECG initial impression time: 17:07 HEART Score History (anamnesis): Slightly suspicious ECG: Normal Age: 45-65 years Risk factors: 1-2 risk factors Troponin: </= normal limit HEART Score: 2 Medical Decision Narrative: 53-year-old female, history of renal artery stenosis, hypertension, bipolar presents with sudden onset severe left sided thoracic back/chest pain.. History was obtained via conversation with patient. On arrival, patient is afebrile, mildly hypertensive, uncomfortable appearing, moving all extremities spontaneously. Full physical exam performed and significant for focal tenderness to the rib cage Differential includes but is not limited to fracture, dislocation, strain, PE, aortic dissection, kidney stone, ACS. Patient was given Tylenol prior to arrival, was given Robaxin here as she declined Dilaudid. For symptomatic management and correction of underlying abnormalities. Workup initiated including CBC CMP troponin BNP UA CTA chest On re-evaluation, patient [remains afebrile, HD stable.] Laboratory workup independently interpreted by me and significant for no leukocytosis, mild hyperkalemia with potassium 5.5, no hyperkalemic changes noted on EKG. Bilirubin is minimally elevated at 1.6, unclear etiology. AST also minimally elevated at 52. Patient has no right upper quadrant or right- sided pain. Alk phos normal. Initial troponin within normal limits, urine shows 5-10 WBCs and 1+ bacteria, though patient is not having any urinary symptoms. Imaging independently interpreted by me and significant for no obvious PE or aortic dissection on CTA chest. Concern for hydronephrosis of the left kidney. An additional CT of the abdomen pelvis ordered to assess for renal/intra- abdominal pathology. This did show pelvic caliectasis of the left collecting system but without identifiable obstructing process, diverticulosis noted without diverticulitis. See radiology read for full review of final results. Repeat troponin negative. EKG independently interpreted by me and significant for findings as above. Treatment for UTI was considered, but deemed unnecessary due to no urinary symptoms, presentation not consistent with pyelonephritis. Given patient history, exam and workup, patient's presentation most likely represents musculoskeletal thoracic back pain given tenderness palpation and no evidence of PE, dissection, ACS or other emergent pathology on workup at this time. Extensive discussion with patient regarding her symptoms. She was discharged with prescription for lidocaine patch and Robaxin, instructed take Tylenol and ibuprofen, return precautions given. Instructed to follow-up with PCP for further assessment. Procedures Risk/Benefits of Procedure(s) Were Explained: Yes Critical Care Critical Care Time Critical Care Time: No
--- NOTE | 2023-07-05 16:10 | CT_ITS ---
PROCEDURE INFORMATION: Exam: CTA Chest With Contrast Exam date and time: 07/05/2023 5:36 PM Age: 53 years old Clinical indication: Other: Right arm numb; Other: Left back pain; Additional info: Sudden onset severe left back pain, right arm numb TECHNIQUE: Imaging protocol: Computed tomographic angiography of the chest with contrast. Exam focused on the arteries. 3D rendering (Not supervised by radiologist): MIP and/or 3D reconstructed images were created by the technologist. Radiation optimization: All CT scans at this facility use at least one of these dose optimization techniques: automated exposure control; mA and/or kV adjustment per patient size (includes targeted exams where dose is matched to clinical indication); or iterative reconstruction. Contrast material: ISOVUE; Contrast volume: 100 ml; Contrast route: INTRAVENOUS (IV); COMPARISON: CT ABDOMEN PELVIS W CON 12/10/2022 6:38 PM FINDINGS: Pulmonary arteries: Normal. No pulmonary emboli. Aorta: Mild atherosclerosis. No aortic aneurysm. No aortic dissection. Renal arteries: Stent within the proximal right renal artery. Thyroid: Multinodular thyroid nodules previously characterized ultrasound 09/12/2022. Lungs: Unremarkable. No consolidation. No masses. Pleural spaces: Unremarkable. No pneumothorax. No pleural effusion. Heart: Unremarkable. No cardiomegaly. No pericardial effusion. Coronary arteries: No significant coronary artery calcifications. Lymph nodes: Unremarkable. No enlarged lymph nodes. Diaphragm: Small hiatal hernia. Gallbladder and bile ducts: Postsurgical changes of cholecystectomy. Bones/joints: No acute osseous findings Soft tissues: Unremarkable. IMPRESSION: No acute pulmonary artery embolism.
--- NOTE | 2023-07-05 16:11 | ECG_ITS ---
APPROVED REPORT Exam: Resting ECG HR:73 bpm ECG Measurements Heart Rate 73 AXES SC 160 P 76 QRSd 86 QRS 72 QT 368 T 67 QTc 394 Conclusion SINUS RHYTHM NORMAL ECG UNCONFIRMED REPORT Electronically signed by : Rico Pekrins MD 07/06/2023 17:48:51
[2023-07-05 16:37] LABS: Basophils % 0.4 % (0.1-2.0); Eosinophils # 0.2 K/mm3 (0.0-0.4); Eosinophils % 2.5 % (0.1-12.0); Hematocrit 43.3 % (37.0-47.0); Hemoglobin 14.6 g/dL (12.2-16.2); Lymphocytes # 1.5 K/mm3 (0.7-4.5); Lymphocytes % 23.6 % (10-50); Mean Corpuscular HGB Conc 33.7 g/dL (31.8-35.4); Mean Corpuscular Hemoglobin 28.7 pg (27.0-31.2); Mean Corpuscular Volume 85.2 fl (81-99); Mean Platelet Volume 9.6 fl (7.4-10.4); Monocytes # 0.4 K/mm3 (0.1-1.0); Monocytes % 5.7 % (1.7-9.3); Neutrophils # 4.4 K/mm3 (1.8-7.8); Neutrophils % 67.8 % (37.0-80.0); Platelet Count 235 K/mm3 (142-424); Red Blood Count 5.08 M/mm3 (4.20-5.40); White Blood Count 6.4 K/mm3 (4.8-10.8)
[2023-07-05 16:44] LABS: Chloride 101 mmol/L (98-107); Sodium 139 mmol/L (136-145)
[2023-07-05 16:45] LABS: Potassium 5.5 mmoL/L (3.5-5.1)
[2023-07-05 16:47] LABS: Alanine Aminotransferase 19 U/L (12-78); Albumin/Globulin Ratio 1.3 (1.1-1.8); Alkaline Phosphatase 67 U/L (38-126); Anion Gap 15.5 mEq/L (5-15); Aspartate Amino Transferase 52 U/L (14-36); Bilirubin,Total 1.6 mg/dl (0.2-1.3); Blood Urea Nitrogen 17 mg/dl (7-17); Carbon Dioxide 28 mmol/L (22.0-30.0); Creatinine Clearance Estimated 83 mL/min (50-200); Estimated Glomerular Filt Rate 75 ml/min (>60); GFR (African American) 90 ML/MIN (>60); Globulin 3.9 g/dL (1.3-3.2); Total Protein,Serum 8.9 g/dl (6.3-8.2)
[2023-07-05 16:48] LABS: Calcium 9.1 mg/dl (8.4-10.2); Glucose 108 mg/dl (74-100)
[2023-07-05 16:54] LABS: NT Pro Brain Natriuretic Pep. 241 pg/mL (0-125)
[2023-07-05 16:56] LABS: Troponin I 0.02 ng/ml (0.00-0.034)
--- NOTE | 2023-07-05 17:00 | PC.NURSE ---
pt refused pain and nausea medicine at this time, aware
[2023-07-05] MEDS: METHOCARBAMOL 500MG TABLET 500 MG PO (17:08)
[2023-07-05] MEDS: LACTATED RINGERS 1000ML 1,000 ML 999 ML IV (17:22)
[2023-07-05] MEDS: 0.9 % SODIUM CHLORIDE 50 ML VIAL IV (17:39)
[2023-07-05] MEDS: IOPAMIDOL-370 (76%);100ML BOTTLE 100 ML IV (17:39)
[2023-07-05] MEDS: SODIUM CHLORIDE 0.9% 10ML SYR (RAD ONLY) 10 ML IV (17:39)
[2023-07-05 18:26] LABS: Microscopic, Urine URINE MICROSCOPIC (MICROSCOPIC)
[2023-07-05] MEDS: KETOROLAC 30MG/ML VIAL 30 MG IV (18:26)
[2023-07-05 18:32] LABS: Appearance,Urine CLEAR (Clear); Bilirubin,Urine Negative (Negative); Blood, Urine 2+ (Negative); Color,Urine YELLOW (Yellow); Glucose,Urine (UA) Negative (Negative); Ketones,Urine Negative (Negative); Leukocyte Esterase,Urine 1+ (Negative); Nitrate,Urine Negative (Negative); Protein,Urine Negative (Negative); Specific Gravity, Urine >= 1.030 (1.005-1.030); Urobilinogen,Urine 0.2 EU/dl (0.2)
--- NOTE | 2023-07-05 18:39 | CT_ITS ---
PROCEDURE INFORMATION: Exam: CT Abdomen And Pelvis Without Contrast Exam date and time: 07/05/2023 7:27 PM Age: 53 years old Clinical indication: Other: Left flank pain TECHNIQUE: Imaging protocol: Computed tomography of the abdomen and pelvis without contrast. Radiation optimization: All CT scans at this facility use at least one of these dose optimization techniques: automated exposure control; mA and/or kV adjustment per patient size (includes targeted exams where dose is matched to clinical indication); or iterative reconstruction. COMPARISON: CT ABDOMEN PELVIS W CON 12/10/2022 6:38 PM FINDINGS: Liver: Normal. No mass. Gallbladder and bile ducts: Postsurgical changes of cholecystectomy. Pancreas: Normal. No ductal dilation. Spleen: Normal. No splenomegaly. Adrenal glands: Normal. No mass. Kidneys and ureters: [id number] left pelviectasis without identifiable obstructing process. Contrast opacification of a normal caliber proximal left ureter. Stomach and bowel: Moderate colonic diverticulosis. No obstruction. No mucosal thickening. Appendix: No evidence of appendicitis. Intraperitoneal space: Unremarkable. No free air. No significant fluid collection. Vasculature: Mild atherosclerotic changes of the abdominal aorta without aneurysmal dilatation. Stent within the proximal right renal artery. Lymph nodes: Unremarkable. No enlarged lymph nodes. Urinary bladder: Unremarkable as visualized. Reproductive: Postsurgical changes of hysterectomy. Bones/joints: Unremarkable. No acute fracture. Soft tissues: Tiny fat containing umbilical hernia. IMPRESSION: 1. [id number] left pelviectasis without identifiable obstructing process. 2. Moderate colonic diverticulosis.
[2023-07-05 18:46] LABS: Bacteria,Urine 1+ /lpf
[2023-07-05 20:18] LABS: Potassium 3.5 mmoL/L (3.5-5.1)
[2023-07-05 21:02] LABS: Troponin I < 0.01 ng/ml (0.00-0.034)
--- NOTE | 2023-07-10 10:12 | PC.NURSE ---
NTD for urine culture per , pt was asymptomatic at this time ER visit
== END 2023-07-05 21:26 | disposition home or self-care (01) ==
PROVIDERS: Emergency Provider Emergency Medicine; PCP Physician Assistant
DX: M54.6 Pain in thoracic spine (principal); Q62.0 Congenital hydronephrosis; I10 Essential (primary) hypertension; R07.9 Chest pain, unspecified
CPT/HCPCS: 71275; 74176; 80053; 81001; 83880; 84132; 84484; 85025; 87086; 93005; 96361; 96374; 96375; 99285; Q9967

== ENCOUNTER 2024-03-01 17:01 | Outpatient (CLI) | payer BC, MEDICAID, SELFPAY ==
[2024-03-01 17:18] LABS: Basophils # 0.1 K/mm3 (0-0.2); Basophils % 0.6 % (0.1-2.0); Eosinophils # 0.1 K/mm3 (0.0-0.4); Eosinophils % 1.1 % (0.1-12.0); Hematocrit 43.1 % (37.0-47.0); Hemoglobin 13.8 g/dL (12.2-16.2); Lymphocytes # 1.9 K/mm3 (0.7-4.5); Lymphocytes % 25.7 % (10-50); Mean Corpuscular Hemoglobin 28.4 pg (27.0-31.2); Mean Corpuscular Volume 88.8 fl (81-99); Mean Platelet Volume 8.5 fl (7.4-10.4); Monocytes # 0.4 K/mm3 (0.1-1.0); Monocytes % 4.8 % (1.7-9.3); Neutrophils # 4.9 K/mm3 (1.8-7.8); Neutrophils % 67.7 % (37.0-80.0); Platelet Count 242 K/mm3 (142-424); Red Blood Count 4.86 M/mm3 (4.20-5.40); Red Cell Distribution Width 14.4 % (11.5-17.5); White Blood Count 7.3 K/mm3 (4.8-10.8)
[2024-03-01 17:36] LABS: Alanine Aminotransferase 15 U/L (12-78); Albumin Level 4.4 g/dl (3.5-5.0); Albumin/Globulin Ratio 1.2 (1.1-1.8); Alkaline Phosphatase 96 U/L (38-126); Anion Gap 9.9 mEq/L (5-15); Aspartate Amino Transferase 27 U/L (14-36); Bilirubin,Total 0.6 mg/dl (0.2-1.3); Blood Urea Nitrogen 9 mg/dl (7-17); Calcium 9.6 mg/dl (8.4-10.2); Carbon Dioxide 29 mmol/L (22.0-30.0); Chloride 104 mmol/L (98-107); Chol/HDL Ratio 6.3 (1-3.5); Cholesterol 265 mg/dl (140-200); Estimated Glomerular Filt Rate 74 ml/min (>60); GFR (African American) 90 ML/MIN (>60); Globulin 3.8 g/dL (1.3-3.2); Glucose 97 mg/dl (74-100); HDL Cholesterol 42 mg/dl (40-60); Magnesium 1.9 mg/dl (1.6-2.3); Potassium 3.9 mmoL/L (3.5-5.1); Sodium 139 mmol/L (136-145); Total Protein,Serum 8.2 g/dl (6.3-8.2); Triglycerides 233 mg/dl (30-150); VLDL Cholesterol 47 mg/dL (0-40)
[2024-03-01 17:51] LABS: T4 (Thyroxine) 9.6 ug/dl (5.53-11.0)
[2024-03-01 17:53] LABS: Direct LDL Cholesterol 156.29 mg/dL (100-129)
[2024-03-01 18:05] LABS: Thyroid Stimulating Hormone 5.82 uIU/mL (0.465-4.68)
[2024-03-03 11:52] LABS: Thyroid Peroxidase Antibodies 82 IU/mL (0-34); Triiodothyronine (T3) Free 3.1 pg/mL (2.0-4.4)
[2024-03-03 16:49] LABS: Thyroglobulin Level 15.9 IU/mL (0.0-0.9)
== END 2024-03-01 23:59 | disposition home or self-care (01) ==
LOC: LAB.DROPOF 17:01
PROVIDERS: PCP Nurse Practitioner Family; Visit Provider Nurse Practitioner Family
DX: E78.2 Mixed hyperlipidemia (principal); I10 Essential (primary) hypertension; E04.1 Nontoxic single thyroid nodule; E03.9 Hypothyroidism, unspecified
CPT/HCPCS: 80050; 80053; 80061; 83735; 84436; 84443; 84481; 85025; 86376; 86800

== ENCOUNTER 2024-03-04 12:42 | Outpatient (CLI) | payer BC, MEDICAID, SELFPAY ==
--- NOTE | 2024-03-04 | US_ITS ---
FINAL REPORT TECHNIQUE: Ultrasound images of the thyroid were obtained. CLINICAL HISTORY: thyroid nodules COMPARISON: 09/12/2022 FINDINGS: The right lobe of the thyroid measures 42 cm. It is normal in echogenicity. The left lobe of the thyroid measures 47 cm. It is normal in echogenicity. The isthmus measures 4 mm. The thyroid is very heterogeneous with multiple nodules bilaterally. Largest nodule on the right measures 16 x 14 x 11 mm, is solid and hypoechoic, not significantly changed from prior exam, TR 4. Largest nodule on the left has increased in size now measuring 17 x 16 x 12 mm, previously measured up to 11 mm, is solid and isoechoic, TR 3. IMPRESSION: Increasing left thyroid lobe nodule, TR 3. Recommend 6-12-month follow-up ultrasound. Stable right thyroid lobe nodule. Reviewed, Interpreted and Dictated by Cash Jurado III, MD Transcribed by Deyanira Cristina Authenticated and [facility]
== END 2024-03-04 23:59 | disposition home or self-care (01) ==
LOC: RAD 12:43
PROVIDERS: PCP Nurse Practitioner Family; Visit Provider Nurse Practitioner Family
DX: E03.9 Hypothyroidism, unspecified (principal); E04.1 Nontoxic single thyroid nodule
CPT/HCPCS: 76536

== ENCOUNTER 2024-05-03 13:25 | Outpatient (POV) | payer BC, MEDICAID, SELFPAY | END 2024-05-03 23:59 | disposition home or self-care (01) | LOC: SC 13:25 | PROVIDERS: PCP Nurse Practitioner Family; Visit Provider Specialist/Technologist | DX: Z00.00 Encounter for general adult medical examination without abnormal findings (principal) ==

== ENCOUNTER 2024-06-10 14:20 | Outpatient (CLI) | payer BC, MEDICAID, SELFPAY ==
[2024-06-10 17:49] LABS: Free T4 (Free Thyroxine) 0.91 ng/dl (0.78-2.19)
[2024-06-10 20:00] LABS: T4 (Thyroxine) 8.4 ug/dl (5.53-11.0)
[2024-06-10 20:13] LABS: Thyroid Stimulating Hormone 4.85 uIU/mL (0.465-4.68)
== END 2024-06-10 23:59 | disposition home or self-care (01) ==
LOC: LAB.DROPOF 06-13 08:43
PROVIDERS: PCP Nurse Practitioner Family; Visit Provider Nurse Practitioner Family
DX: E01.0 Iodine-deficiency related diffuse (endemic) goiter (principal)
CPT/HCPCS: 84436; 84439; 84443; 84481

== ENCOUNTER 2024-06-23 12:11 | Outpatient (CLI) | payer BC, MEDICAID, SELFPAY ==
--- NOTE | 2024-06-23 12:12 | US_ITS ---
FINAL REPORT TECHNIQUE: Real-time grayscale and color ultrasound of the thyroid was performed. CLINICAL HISTORY: Thyroid nodule COMPARISON: 03/04/2024 FINDINGS: The thyroid gland is enlarged measuring 49 mm on the right and 49 mm on the left. The isthmus measures 4 mm. The parenchyma is heterogeneous and hypervascular. Nodules: Stable left TR 4 nodule measuring 17 x 12 mm. Previously noted right nodule was not clearly seen on today's exam. IMPRESSION: Stable left thyroid nodule. Recommend 12-month follow-up per TI-RADS criteria. Reviewed, Interpreted and Dictated by Alex Weeks MD Transcribed by Jyothi Vang Authenticated and [facility]
== END 2024-06-23 23:59 | disposition home or self-care (01) ==
LOC: RAD 12:12
PROVIDERS: PCP Nurse Practitioner Family; Visit Provider Nurse Practitioner Family
DX: E04.1 Nontoxic single thyroid nodule (principal)
CPT/HCPCS: 76536

== ENCOUNTER 2024-09-15 12:33 | Outpatient (CLI) | payer BC, MEDICAID, SELFPAY ==
--- NOTE | 2024-09-15 12:33 | US_ITS ---
FINAL REPORT TECHNIQUE: Limited sonographic images of the thyroid were obtained. CLINICAL HISTORY: history of thyroid nodules COMPARISON: 06/23/2024 FINDINGS: The thyroid is severely heterogeneous. There is borderline thyroidmegaly, similar to previous. No discrete mass is seen in the right lobe. There is a homogeneous isoechoic mass in the anterior left lobe measuring 15 x 13 x 9 mm, was 17 x 14 x 12 mm. IMPRESSION: No new thyroid lesion identified. Mildly increased size and TR 3 lesion in the left lobe, strongly favor benign. Recommend continued follow-up in 12 months. Reviewed, Interpreted and Dictated by Daisha Horton MD Transcribed by Lanny Nash Authenticated and [facility]
== END 2024-09-15 23:59 | disposition home or self-care (01) ==
LOC: RAD 12:33
PROVIDERS: PCP Nurse Practitioner Family; Visit Provider Nurse Practitioner
DX: E01.0 Iodine-deficiency related diffuse (endemic) goiter (principal)
CPT/HCPCS: 76536

== ENCOUNTER 2025-03-06 15:29 | Outpatient (CLI) | payer BC, MEDICAID, SELFPAY ==
[2025-03-06 18:38] LABS: T4 (Thyroxine) 9.3 ug/dl (5.53-11.0)
[2025-03-06 18:41] LABS: Free T4 (Free Thyroxine) 1.17 ng/dl (0.78-2.19)
[2025-03-06 18:52] LABS: Thyroid Stimulating Hormone 4.30 uIU/mL (0.465-4.68)
[2025-03-08 12:42] LABS: Triiodothyronine (T3) Free 3.1 pg/mL (2.0-4.4)
== END 2025-03-06 23:59 | disposition home or self-care (01) ==
LOC: LAB 15:30
PROVIDERS: PCP Nurse Practitioner Family; Visit Provider Nurse Practitioner Family
DX: E01.0 Iodine-deficiency related diffuse (endemic) goiter (principal)
CPT/HCPCS: 36415; 84436; 84439; 84443; 84481; 86376; 86800

== ENCOUNTER 2025-03-09 12:31 | Outpatient (CLI) | payer BC, MEDICAID, SELFPAY ==
--- NOTE | 2025-03-09 13:00 | US_ITS ---
FINAL REPORT CLINICAL HISTORY: thyromegaly COMPARISON: 09/15/2024 FINDINGS: THYROID ULTRASOUND FINDINGS: SIZE: Normal ECHOGENICITY: Extremely heterogeneous which may be seen with glare/thyroiditis, similar to prior exam LESIONS: Dominant isoechoic mass left lobe measuring 15 x 9 x 10 mm, previously 15 x 9 x 12 mm. Lesion is not considered to confirm the change in is classified as a TR 3 lesion. OTHER: No additional findings IMPRESSION: Stable left thyroid mass TI-RADS 3 RECOMMENDATION: 12 month follow-up Authenticated and [facility]
== END 2025-03-09 23:59 | disposition home or self-care (01) ==
LOC: RAD 12:32
PROVIDERS: PCP Nurse Practitioner Family; Visit Provider Nurse Practitioner Family
DX: E01.0 Iodine-deficiency related diffuse (endemic) goiter (principal)
CPT/HCPCS: 76536